=== PATIENT | male | born 1935 | race Caucasian/White ===

== ENCOUNTER 2017-05-22 10:26 | Emergency (ER) | payer MEDICARE ==
[2017-05-22 11:36] LABS: #Lymphocytes 0.7 thou/uL (1.20-3.40); #Monocytes 0.8 thou/uL (0.11-0.59); #Neutrophils 8.4 thou/uL (1.40-6.50); %Basophils 0.1 % (0.0-1.0); %Eosinophils 0.4 % (0.0-10.0); %Lymphocytes 7.1 % (21.0-51.0); %Monocytes 7.9 % (0.0-10.0); %Neutrophils 84.5 % (42.0-75.0); Hemoglobin 14.7 g/dL (14.0-18.0); Mean Corpuscular HGB CONC 32.8 g/dL (32.0-36.0); Mean Corpuscular Hemoglobin 33.1 pg (27.0-31.0); Mean Platelet Volume 8.7 fL (7.4-10.4); Platelet Count 200 thou/uL (130-400); RBC Distribution Width 13.1 % (11.5-14.5); Red Blood Cell (RBC) Count 4.43 mill/uL (4.70-6.10)
[2017-05-22 11:58] LABS: ALT (SGPT) 15 U/L (8-55); AST (SGOT) 17 U/L (5-34); Albumin 3.9 g/dL (3.4-4.8); Alkaline Phosphatase 60 U/L (40-150); Anion Gap 14 mmol/L (10-20); BUN (Urea Nitrogen) 17 mg/dL (8.4-25.7); Calc. Creatinine Clearance 0 mL/min (70-130); Calcium 9.9 mg/dL (7.8-10.44); Carbon Dioxide 23 mmol/L (23-31); Chloride 104 mmol/L (98-107); Estimated GFR-MDRD 74; Globulin 3.3 g/dL (2.4-3.5); Glucose 131 mg/dL (83-110); Potassium 4.7 mmol/L (3.5-5.1); Protein, Total 7.2 g/dL (5.8-8.1); Sodium 136 mmol/L (136-145)
[2017-05-22 12:03] LABS: CKMB 1.8 ng/mL (0-6.6); Troponin I 0.022 ng/mL (< 0.028)
[2017-05-22 13:01] LABS: Clarity Slightly Cloudy (Clear); Leukocyte Negative (Negative); Nitrite Negative (Negative); Specific Gravity, Urine 1.025 (1.002-1.036); pH, Urine 5.5 (5.0-9.0)
[2017-05-22 13:02] LABS: Bilirubin Small (Negative); Blood, Urine Negative (Negative); Glucose, Urine (Dipstick) Negative (Negative); Protein, Urine (Dipstick) 30 mg/dL (Neg-Trace)
--- NOTE | 2017-05-22 13:50 | RAD ---
PORTABLE CHEST: Date: 05/22/17 PROVIDED CLINICAL HISTORY: Altered mental status. FINDINGS: Comparison with 01/10/17. Cardiac and mediastinal silhouette is unchanged in appearance. Chronic obstructive changes are seen. There is questioned parenchymal opacity of the left lung base. The lungs appear otherwise clear. No p leural fluid or pneumothorax evident. IMPRESSION: Question left basilar opacity. Correlation with lateral view may be useful. Pneumonia cannot be exclu ded. POS: MARIELOS
[2017-05-22] MEDS ORDERED: Acetaminophen 500 MG TAB ONE (14:10)
[2017-05-22] MEDS ORDERED: Lisinopril 10 MG TAB ONE (14:26)
--- NOTE | 2017-05-22 14:35 | CT ---
HEAD CT WITHOUT CONTRAST: DATE: 05/22/17. COMPARISON: 01/10/17. HISTORY: Altered mental status with lethargy, weakness, and fatigue. TECHNIQUE: Serial axial CT imaging obtained at 5 mm intervals from vertex through the skull base without contras t. FINDINGS: The imaged paranasal sinuses and mastoid air cells are well aerated. There is no displaced calvarial fracture. There is no intracranial hemorrhage, midline shift, mass effect, or ventricular enlargement. There is periventricular, deep, and subcortical white matter hypodensity, evidence of small-vessel di sease. IMPRESSION: Evidence of small-vessel disease. No intracranial hemorrhage or displaced calvarial fracture. If th ere is concern for acute infarction, brain MRI advised. POS: LUCIANO
[2017-05-22] MEDS ORDERED: Piperacillin/Tazobactam 4.5 GM in Sodium Chloride 0.9% 100 ML IVPB SCH (15:00)
--- NOTE | 2017-05-22 19:28 | CON ---
DATE OF CONSULTATION: 05/22/2017 ER CONSULTATION NOTE PRIMARY CARE PHYSICIAN: Glenn Ruiz M.D. REFERRING PHYSICIAN: Gilson Lira M.D. CHIEF COMPLAINT: Fever and lethargy. HISTORY OF PRESENT ILLNESS: Mr. Robertson is an 81-year-old white male with history of hypertension, di abetes, hyperlipidemia, peripheral neuropathy, dementia, COPD, and cerebrovascular disease who was br ought to the emergency department for the third time in a week for fevers and lethargy. Prior today, he was taken to outside ER, the last being at [facility] a few days ago. At that oi, he was diagnosed with urinary tract infection and started on antibiotics, in which daughter who is his primary caregiver was unable to cherry picker operator for him until yesterday due to problems. She states that she has found him on the floor a few times and he cannot tell her why. No apparent i memo. She has a car that is not working well and it is a large time unable to get his medicines o n a regular basis. He was brought in by EMS again in the emergency department for evaluation. Workup here was negative except for positive flu screen, temperature was 102.9, but everything else was normal. We were franz d for evaluation. There has been no chest pain that he admits to. No nausea, vomiting or diarrhea. I did call his daughter, Sabine, at [phone], who is his medical decision maker and explained the c maria de jesusrenfish situation. PAST MEDICAL HISTORY: 1. Hypertension. 2. Diabetes mellitus type 2, insulin-dependent. 3. Hyperlipidemia. 4. Peripheral neuropathy. 5. Dementia. 6. Cerebral vascular disease. 7. COPD. PAST SURGICAL HISTORY: Not obtainable due to the patient's mental status. HOME MEDICATIONS: 1. Lisinopril 10 mg p.o. daily. 2. NovoLog sliding scale q.i.d. 3. Lantus 12 units subcu at bedtime. 4. Lipitor 10 mg p.o. at bedtime. ALLERGIES: No known drug allergies. FAMILY HISTORY: Negative for clotting or bleeding disorder, no immune dysfunction. SOCIAL HISTORY: Significant for social alcohol. No IV drug abuse. He does smoke about half pack of cigarettes per day. His daughter only gives him in mild and limited amounts. The patient lives in a travel trailer 20 feet from his daughter's house. REVIEW OF SYSTEMS: A 10-point review of systems was performed. The patient denied everything. PHYSICAL EXAMINATION: VITAL SIGNS: Temperature 102.9, pulse 90, blood pressure 152/117, respiratory rate 16, sat 98% on ro om air. GENERAL: He is awake. He is alert. He is oriented to person and the fact that he is in the hospita , but cannot me give any further information. He does not appear in acute distress. HEENT: Normocephalic and atraumatic. Pupils equal, round, react to light bilaterally, mucous membra torito moist. No visible lesions. No thrush. NECK: Supple with no lymphadenopathy, JVD or thyromegaly. He has normal carotid upstrokes. I do no t appreciate bruits. LUNGS: Clear. He has good air movement. Symmetric chest excursion. There is no prolonged expirato ry phase. No wheezes, no crackles. CARDIOVASCULAR: Normal S1 and S2, no S3 or S4. He has normal cardiac and regular. I do not appreci ate murmurs. ABDOMEN: Soft, it is nontender, nondistended. No masses or organomegaly. EXTREMITIES: No cyanosis, clubbing. Trace pedal edema. SKIN: Warm, moist, and well perfused. There is no other rash or lesions. NEUROLOGIC: Cranial nerves II-XII grossly intact. He has no apparent focal neurologic deficits. Sp eech appears normal. His recall is poor and he is only oriented to person and a type of location. LABORATORY DATA: CMP is normal. Sodium 136, potassium 4.7, chloride 104, bicarb 23, BUN 17, creatin ine 0.98, calcium 9.9, magnesium of 2.0, and glucose of 131. Liver function completely within normal limits. CBC showed white count of 10.0, 84% granulocytes, hemoglobin is 14.7, hematocrit 41.8 and platelet co unt of 200,000. CK was normal at 82, CK-MB of 1.8, troponin I 0.022. BNP normal 134.6 and urinalysi s here was negative for bacterial infection. Lactic acid 1.2. CT scan of the brain showed chronic s mall vessel disease. Chest x-ray showed possible left basilar opacity, but looks like scarring with obscuration that maybe 1 cm of the heart border. Both costophrenic angles are sharp. Microbiologic studies and influenza screen positive for flu A. ASSESSMENT AND PLAN:1. 1. Influenza A. Recommend oseltamivir 75 mg p.o. b.i.d. for 5 days. I do not believe he has clinic al pneumonia. I would not treat with levofloxacin. As far as hospital disposition, the patient does not meet any inpatient criteria or observation criteria. Recommend that he would be returned home t o follow up with his primary care physician. I did speak with the daughter, she had concerns that radha was unable to care for him. I did recommend the nursing staff and the emergency department to cont act case management for an APS referral, but nonetheless could not necessary keep him here. 2. Hypertension, 152/117, given 10 mg of lisinopril in the emergency department. 3. Diabetes mellitus type 2 on insulin, to continue. 4. Hyperlipidemia on Lipitor. 5. Peripheral neuropathy. 6. Dementia. Certainly currently in full swing.
== END 2017-05-22 17:02 | disposition home or self-care (01) ==
LOC: ERS 10:26
DX: J11.1 Influenza due to unidentified influenza virus with other respiratory manifestations (principal); F03.90 Unspecified dementia, unspecified severity, without behavioral disturbance, psychotic disturbance, mood disturbance, and anxiety; E11.40 Type 2 diabetes mellitus with diabetic neuropathy, unspecified; I10 Essential (primary) hypertension; J44.9 Chronic obstructive pulmonary disease, unspecified; F17.210 Nicotine dependence, cigarettes, uncomplicated; Z79.899 Other long term (current) drug therapy; Z86.73 Personal history of transient ischemic attack (TIA), and cerebral infarction without residual deficits; Z79.4 Long term (current) use of insulin
CPT/HCPCS: 36415; 70450; 71045; 80053; 81003; 81015; 82553; 83605; 83735; 83880; 84484; 85025; 87040; 87086; 93005; 96360; 96361; J2543; J7050

== ENCOUNTER 2018-10-17 15:04 | Observation (INO) | payer MEDICARE, MEDICAID ==
--- NOTE | 2018-10-17 15:28 | PDOC.FPRHP ---
- History of Present Illness Chief Complaint: syncopal episode History of Present Illness: 83 you M with chronic afib who presented as tx from [place] for syncopal episode. Limited history is provided by patient. Per daughter, patient was at [place] sitting outside when he became unresponsive. It was unsure how long he was unconsciousness for. EMS was called. At the [place] ED had SBP 90s and given 1L NS. Glucose was reportedly 48, was given D5. UA was consistent with UTI, patient was afebrile, no tachycardia. He denies dysuria, hematuria. He is A&O x1 , per daughter this is his baseline due to his dementia. EKG showed afib, consistent with PMH. - Allergies/Adverse Reactions Allergies Allergy/AdvReac Type Severity Reaction Status Date / Time No Known Allergies Allergy Unverified 11/07/12 00:35 - Home Medications Medication Instructions Recorded Confirmed Type Aspirin [Ecotrin Low Strength] 81 mg PO DAILY 11/07/12 11/07/12 History Calcitrate + Vit D Caplet 2 tablet PO DAILY 11/07/12 11/07/12 History Lisinopril 10 mg PO DAILY 11/07/12 11/07/12 History Insulin Detemir 100 UNITS/ML 14 units SC HS #0 vial 11/08/12 Rx [Levemir] - History PMHx:Dementia, IDDM2, HTN, Afib, Hx DVA, COPD, Onchomycosis PSHx: unable to attain FHx:n/c Social: Drinks socially every week, denies drug use, current smoker 1/2PPD - Review of Systems ROS unobtainable: due to mental status - Vital signs 134/78, Pulse: 69, Resp: 16, Temp: 98.1 (Oral), Pain: 0, O2 sat: 96 on Room Air , Time: 10/17/2018 15:08. - Physical Exam Constitutional: NAD -Constitutional: A&O x1 (to self) awake, non lethargic HEENT: normocephalic and atraumatic, PERRLA, EOMI -HEENT: red conjunctiva Neck: supple, FROM, no bruits Heart: RRR, normal S1/S2, pulses present, no edema -Lungs: bilateral lung crackles up to mid hinojosa Abdomen: soft, non-tender Musculoskeletal: normal structure, normal tone, ROM grossly normal -Neurological: 4/5 strength in BLE Skin: no rash/lesions Heme/Lymphatic: no unusual bruising or bleeding FMR H&P: Results - EKG Interpretation EKG: afib, no RVR - Radiology Interpretation CT scan - head Status: report reviewed by me Additional comment: chronic ischemic changes, no acute intracranial abnormalities Chest x-ray Status: image reviewed by me, report reviewed by me Additional comment: report read pulmonary edema FMR H&P: A/P - Problem List (1) Syncope Current Visit: Yes Status: Acute Code(s): R55 - SYNCOPE AND COLLAPSE (2) Chronic a-fib Current Visit: Yes Status: Acute Code(s): I48.2 - CHRONIC ATRIAL FIBRILLATION (3) Insulin dependent diabetes mellitus Current Visit: Yes Status: Acute Code(s): E11.9 - TYPE 2 DIABETES MELLITUS WITHOUT COMPLICATIONS; Z79.4 - FOUNDATION DIGGER (CURRENT) USE OF INSULIN (4) HTN (hypertension) Current Visit: Yes Status: Acute Code(s): I10 - ESSENTIAL (PRIMARY) HYPERTENSION (5) COPD (chronic obstructive pulmonary disease) Current Visit: Yes Status: Acute (6) Hyperlipidemia Current Visit: Yes Status: Acute Code(s): E78.5 - HYPERLIPIDEMIA, UNSPECIFIED (7) BPH (benign prostatic hyperplasia) Current Visit: Yes Status: Acute Code(s): N40.0 - BENIGN PROSTATIC HYPERPLASIA WITHOUT LOWER URINRY TRACT SYMP - Plan 83 yo M with hx of syncopal episodes admitted for syncopal episode work up #Syncopal episode -Glucose 48 en route, SBP 90s in [place]. s/p 1L bolus and D5 -ddx: metabolic synope vs. orthostatuic -CT head: chronic ischemic changes. Per patient PCP Dr. Hicks was worked up outpatient with no signficiant findings -Will workup syncope with carotid dopplers, orthostatic BPs, TTE, tele monitoring overnight #Metabolic acidosis -AG 12, LA 3.5 -s/p 1L bolus, will do 500cc bolus so as not to fluid overload -Repeat LA #Pulmonary edema -per CXR -patient with crackles on exam but non hypoxic on RA, CXR findings could be from interstitial -BNP 172, no hx of heart failure -no other signs of fluid overload -TTE #UTI -s/p rocephin -continue -pending blood & urine cultures -mild leukocytosis, not likely sepsis in light of stable vitals signs #Hx of dysphagia -admitted 1 yr ago for aspiration PNA -daughter unsure of modified diet -NPO until bedside swallow -speech consult #chronic Afib -continue eliquis #HTN -home meds #HLD -home meds # COPD -home meds #BPH -home meds #IDDM2 -home meds -accuchecks/ SS dvt ppx: serenityis PCP: Fabiola admit: tele/obs abx: rocephin fluids: SL FMR H&P: Upper [place] - Pertinent history Eric Robertson is an 83 year old male with a history of atrial fibrillation, diabetes mellitus, and dementia who presents to the ED as aTxfer from outside ER due to syncope. Reportedly, pt was outside on the porch at his NH when he was noted to staff to be poorly responsive and was taken inside to get out of the heat when EMS arrived. Accucheck was 48 per EMS, pt was given D10 prior to arrival. At outside ED, pt received 1L NS. UA showed evidence of infection, so pt received a dose of Rocephin prior to arrival. - Pertinent findings Vitals: as described above. Exam: General: alert and oriented x 1 Heart: irregularly irregular rhythm, regular rate; no murmurs, rubs, or gallops. Lungs: bilateral crackles extending from bases to mid lung hinojosa. In no respiratory distress Neuro: CN II-XII intact grossly; no focal deficits. Extremities: moves all extremities well; no peripheral edema. Labs/Imaging UA: + Ketones, moderate blood, + nitrite, Large leukocyte esterase, >50 WBC, 4+ bacteria BNP: 110. CXR: extensive pulmonary edema Trop: negative x 1 EKG: atrial fibrillation - Plan Date/Time: 10/17/18 1528 IShereen, have evaluated this patient and agree with findings/plan as outlined by [facility] internship resident. Pertinent changes/additions are listed here. Syncope - uncertain etiology. ddx: cardiogenic (structural vs.arrhythmogenic), neurogenic (CVA/Sz), metabolic (hypoglycemia,infection), orthostatic. - will admit to telemetry for further observation. - further workup to include blood/urine cultures, continuous telemetry monitoring, echocardiogram, carotid dopplers, ac/hs accuchecks. - CT negative for acute ischemic event. Unlikely Sz Urinary tract infection - will continue Rocephin. - urine culture pending Elevated lactic acid - possibly related to sepsis/infection although no anion-gap - likely related to volume depletion, will recheck now that pt has received IV fluids. Chronic atrial fibrillation - rate controlled. - on anticoagulation Insulin Diabetes mellitus - with hypoglycemic event, will hold insulin to determine pt's need. - hypoglycemia protocol in place - consistent carbohydrate diet - AC/HS accuchecks Dementia, likely vascular - no medications currently. - reorientation measures. The remainder of pt's chronic medical problems to be managed as listed above. Disposition: stable. Discussed pt with Dr. Domingo who states that pt has been relatively stable over the last year. Pt had syncopal episode in the past with negative neuroimaging. No formal workup needed at that time. Pt also had a hospitalization ~ 1 yr ago for aspiration pneumonia, but has been stable since. DVT prophylaxis: on eliquis for chronic anticoagulation, will continue.
--- NOTE | 2018-10-17 16:03 | CT ---
CT BRAIN NONCONTRAST: DATE: 10/17/2018 HISTORY: 83-year-old male with altered mental status. FINDINGS: There is no evidence of acute intra-axial or extra-axial hemorrhage. There is no midline shift or any other mass effect. There is no extra-axial fluid collection. There is no evidence of obstructive hydrocephalus. Calvarium is intact. There is diffuse brain parenchymal volume loss. There are low att enuation areas in the white matter. These are nonspecific, but in a patient of this age, they are probably chronic ischemic white matter changes due to microvascular atherosclerosis. Old lacunar infa rctions left basal ganglia, right thalamus, left jorge. No interval change since 01/29/2019 IMPRESSION: 1) No acute intracranial findings. 2) involutional changes and chronic ischemic white matter changes. 3) cluster of multiple tiny old lacunar infarctions in the left basal ganglia. 4) tiny old lacunar infarction in right thalamus and one in the left jorge.
[2018-10-17] MEDS ORDERED: cefTRIAXone\\ROCEPHIN 2 GM VIAL ONE (16:20)
[2018-10-17] MEDS ORDERED: Insulin Regular 300 UNITS/3 ML VIAL SC PRN ×2 (17:58)
[2018-10-17] MEDS ORDERED: Lactated Ringer's 500 ML IV SCH (17:58)
[2018-10-17] MEDS ORDERED: Dextrose 5% in Water 1,000 ML IV PRN (17:58)
[2018-10-17] MEDS ORDERED: Dextrose 50% Abboject 50 ML SYRINGE SLOW IVP PRN (17:58)
[2018-10-17] MEDS ORDERED: Ergocalciferol 1.25 MG(50,000 UNITS) CAP PO SCH (19:15)
[2018-10-17 19:25] LABS: Troponin I Less than 0.010 ng/mL (< 0.028)
[2018-10-17 20:00] LABS: Lactic Acid 2.8 mmol/L (0.5-2.2)
[2018-10-17] MEDS ORDERED: Apixaban 5 MG TAB PO SCH (21:00)
[2018-10-17] MEDS ORDERED: Atorvastatin Calcium 20 MG TAB PO SCH (21:00)
[2018-10-17] MEDS ORDERED: Tamsulosin HCl 0.4 MG CAP PO SCH (21:00)
[2018-10-17 22:28] LABS: Troponin I Less than 0.010 ng/mL (< 0.028)
[2018-10-17 22:51] VITALS: BMI 23.1
[2018-10-17 23:21] LABS: Strep pneumo Urine Ag NEGATIVE (NEGATIVE)
[2018-10-18] MEDS ORDERED: traMADol HCl 50 MG TAB PO PRN (01:54)
--- NOTE | 2018-10-18 06:36 | PDOC.FM ---
- Subjective Subjective: bradcardia, afib/aflutter last night. patient cannot give good sx history says "everything is good". A&O x1. - Objective Vital Signs & Weight: Vital Signs (12 hours) Temp Pulse Resp BP Pulse Ox 10/18/18 03:20 98.5 F 63 19 155/89 H 97 10/17/18 23:27 63 139/67 96 10/17/18 20:00 98.1 F 72 16 125/66 95 Weight Weight 74.984 kg I&O: 10/16/18 10/17/18 10/18/18 06:59 06:59 06:59 Intake Total 710 Output Total 150 Balance 560 Result Diagrams: 10/18/18 06:03 10/18/18 06:03 Phys Exam - Physical Examination Constitutional: NAD HEENT: moist MMs mucus in eyes, no erythema Respiratory: no wheezing, no rales Cardiovascular: no significant murmur afib Gastrointestinal: soft, non-tender Musculoskeletal: no edema Neurological: non-focal, moves all 4 limbs Psychiatric: normal affect Deviation from normal: a&o x1 Skin: cap refill <2 seconds Dx/Plan (1) Syncope Code(s): R55 - SYNCOPE AND COLLAPSE Status: Acute (2) Chronic a-fib Code(s): I48.2 - CHRONIC ATRIAL FIBRILLATION Status: Acute (3) Insulin dependent diabetes mellitus Code(s): E11.9 - TYPE 2 DIABETES MELLITUS WITHOUT COMPLICATIONS; Z79.4 - ELECTRICAL SUPERVISOR (CURRENT) USE OF INSULIN Status: Acute (4) HTN (hypertension) Code(s): I10 - ESSENTIAL (PRIMARY) HYPERTENSION Status: Acute (5) COPD (chronic obstructive pulmonary disease) Status: Acute (6) Hyperlipidemia Code(s): E78.5 - HYPERLIPIDEMIA, UNSPECIFIED Status: Acute (7) BPH (benign prostatic hyperplasia) Code(s): N40.0 - BENIGN PROSTATIC HYPERPLASIA WITHOUT LOWER URINRY TRACT SYMP Status: Acute - Plan Plan: #Syncopal episode ddx: cardiogenic vs. neurogenic vs. metabolic vs. orthostatic - likely metabolic in light of hypoglemic episode -UTI treated per Rocephin -pending TTE, trops negative x 3 -CT brain, no acute changes -No further hypoglycemic episodes -Pending carotid dopplers - only requiring 12 units insulin, will switch to metformin, renal function good #Urinary tract infection - will continue Rocephin, pending cultures #Elevated lactic acid - possibly related to sepsis/infection/volume depletion although no anion-gap - AM rpt pending #Chronic atrial fibrillation - rate controlled, continue eliquis #IDDM2 - high accuchecks 118-265 with 3 units SS to cover - need to call snf to find out insulin requirement #History of dysphagia -passed bedside swallow, puree diet pending speech recs #Dementia, likely vascular - no medications currently. - reorientation measures code: full pcp: gladys dispo: pending studies and workup, likely back to NH today
[2018-10-18 06:49] LABS: #Eosinphils 0.2 thou/uL (0.0-0.7); #Lymphocytes 2.9 thou/uL (1.20-3.40); #Neutrophils 8.6 thou/uL (1.40-6.50); %Basophils 0.1 % (0.0-1.0); %Eosinophils 1.9 % (0.0-10.0); %Lymphocytes 22.6 % (21.0-51.0); %Monocytes 7.7 % (0.0-10.0); %Neutrophils 67.6 % (42.0-75.0); Hemoglobin 12.9 g/dL (14.0-18.0); Mean Corpuscular HGB CONC 32.9 g/dL (32.0-36.0); Mean Corpuscular Hemoglobin 30.6 pg (27.0-31.0); Mean Corpuscular Volume 92.9 fL (78.0-98.0); Platelet Count 243 thou/uL (130-400); RBC Distribution Width 14.4 % (11.5-14.5); Red Blood Cell (RBC) Count 4.21 mill/uL (4.70-6.10); White Blood Cell (WBC) Count 12.7 thou/uL (4.8-10.8)
[2018-10-18 07:13] LABS: Anion Gap 12 mmol/L (10-20); BUN (Urea Nitrogen) 12 mg/dL (8.4-25.7); Calc. Creatinine Clearance 66 mL/min (70-130); Calcium 9.3 mg/dL (7.8-10.44); Carbon Dioxide 24 mmol/L (23-31); Chloride 106 mmol/L (98-107); Estimated GFR-MDRD 79; Glucose 207 mg/dL (83-110); Potassium 4.1 mmol/L (3.5-5.1); Sodium 138 mmol/L (136-145)
[2018-10-18 07:22] LABS: Lactic Acid 2.1 mmol/L (0.5-2.2)
[2018-10-18] MEDS ORDERED: metFORMIN XR 500 MG TAB PO ONE (08:00)
[2018-10-18] MEDS ORDERED: Amlodipine 5 MG TAB PO SCH (09:00)
[2018-10-18] MEDS ORDERED: Apixaban 5 MG TAB PO SCH (09:00)
[2018-10-18] MEDS ORDERED: Docusate 100 MG CAP PO SCH (09:00)
[2018-10-18] MEDS ORDERED: Polyethylene Glycol 3350 17 GM Packet PO SCH (09:00)
[2018-10-18] MEDS ORDERED: Finasteride 5 MG TAB PO SCH (09:00)
[2018-10-18] MEDS ORDERED: Multivitamin W/ Minerals 1 TAB PO SCH (09:00)
[2018-10-18] MEDS ORDERED: Aspirin 81 mg Enteric Coated Tablet PO SCH (09:00)
[2018-10-18] MEDS ORDERED: Lisinopril 5 MG TAB PO SCH (09:00)
[2018-10-18] MEDS ORDERED: Sulfameth/Trimethoprim DS 800-160mg TAB PO ONE (10:04)
[2018-10-18 11:17] LABS: Hemoglobin A1c 8.1 % (4.0-6.0)
[2018-10-18] MEDS ORDERED: cefTRIAXone\\ROCEPHIN 1 GM in Sodium Chloride 0.9% 100 ML IVPB SCH (12:00)
[2018-10-18 13:07] VITALS: BP 140/65; TEMP 98
--- NOTE | 2018-10-18 14:21 | ULT ---
US Carotid Doppler STANDARD History: Syncope Comparison: None. Findings: Real-time grayscale, color and spectral analysis of the extracranial carotid and vertebral arteries was performed. No elevated peak systolic velocities within the internal carotid arteries. Antegrade flow both verteb ral arteries. Impression: No hemodynamically significant stenosis.
[2018-10-18] MEDS ORDERED: Sulfameth/Trimethoprim DS 800-160mg TAB PO SCH (21:00)
[2018-10-18] MEDS ORDERED: metFORMIN XR 500 MG TAB PO SCH (21:00)
--- NOTE | 2018-10-19 13:56 | HP ---
ADDENDUM: Please see the note from Dr. Rodriguez for which I agree patient was seen, evaluated, and discussed with the residents and examined with him. HISTORY OF PRESENT ILLNESS: This is an 83-year-old senior care patient who was coming in for a syncopal spell. Initially was found dehydrated, systolic blood pressure in the 90s and also glucose is 48 and was given D5. Sugar has been doing fine since. It sounds like he perked up quickly since the sugar came up and the fluids were given. Denies fever. He was found to have UTI. He is in atrial fibrillation, but that is chronic. He is not a good historian secondary to dementia. Allergies, home medications, past medical history, past surgical history, family history, social history and review of systems, all per Dr. Rodriguez's history and physical for which I have reviewed and agree. PHYSICAL EXAMINATION: VITAL SIGNS: Afebrile. Vital signs are stable. GENERAL: Alert to name, but that is really about it. Pleasant, but somewhat confused. ENT: Does have a little bit of conjunctival irritation on the right side. NECK: No bruits. CHEST: Clear. HEART: Slow atrial fibrillation, irregularly irregular, pulse rate right around 50-60. ABDOMEN: Benign. EXTREMITIES: No edema. DIAGNOSTIC STUDIES: CT really showed no ischemia. Blood workup significant for lactic acidosis. Procalcitonin was fine on 2 of the UA in front of me, but I hear that had evidence of UTI with red blood cells and white blood cells. ASSESSMENT AND PLAN: 1. Syncopal spell, likely from the hypoglycemia. 2. Diabetes. 3. Urinary tract infection. 4. Possible right eye conjunctivitis. 5. Dementia. 6. Atrial fibrillation, well controlled. PLAN: IV antibiotics for the urinary tract infection. We will wait on culture. Monitor blood sugar closely, just put him on sliding scale and hold off on his daily insulin. He may not be need it as he is on a very tiny dose. Otherwise, reviewed all the rest of his medicines. We will resume any other home medicines from his senior care and as long as he stays okay mentally. He will probably be able to go back to the senior care tomorrow if not Friday depending on when they are willing to take him, though it sounds like this is likely all low sugar related. Start about check things in. Job ID: [id number]
--- NOTE | 2018-10-19 14:16 | PRG ---
DATE OF SERVICE: 10/18/2018 ADDENDUM: Please see note from Dr. Rodriguez, for which I agree. The patient is seen, evaluated, discussed, and examined with the residents by bedside. No real change on this 83-year-old gentleman who was admitted for a syncopal spell. It sounds like it is more likely hypoglycemia. From a diabetes standpoint, he is just on insulin and obviously, this may not be a griffiths choice for him if he is having syncopal spells and severe hypoglycemia like he did. He is in chronic atrial fibrillation and there are really no changes or concern that this is some kind of an arrhythmia-type episode. He has chronic dementia, but not really changed. He does have UTI and we are treating him appropriately with that. Still getting an echo and a carotid but as long as those come back fairly normal, we are going to assume it is hypoglycemia and she will be able to leave. Exam today is completely fine. No major changes other than the slow atrial fibrillation. There was some question on chest x-ray from outside ER if he had pulmonary congestion, but he has absolutely no signs or symptoms of that at all. We will see what the echo shows. Job ID: [id number]
--- NOTE | 2018-10-20 21:58 | EKG ---
Test Reason : Blood Pressure : / mmHG Vent. Rate : 049 BPM Atrial Rate : 300 BPM P-R Int : 000 ms QRS Dur : 080 ms QT Int : 444 ms P-R-T Axes : 000 -20 000 degrees QTc Int : 401 ms Atrial fibrillation with slow ventricular response Inferior infarct , age undetermined Abnormal ECG When compared with ECG of 17-OCT-2018 15:22, (Unconfirmed) No significant change was found Confirmed by LESLIE PIMENTEL, . SJamaal (4) on 10/20/2018 9:58:16 PM Referred By: ARISTEO ELISE Confirmed By:DR. Gómez NELSON MD
== END 2018-10-18 14:42 ==
LOC: ERS 15:04 → INTOOBSV 15:56 → 2NO 15:56
PROVIDERS: ADMIT Family Medicine; ATTEND Family Medicine
DX: R55 Syncope and collapse (principal); N39.0 Urinary tract infection, site not specified; J44.9 Chronic obstructive pulmonary disease, unspecified; I10 Essential (primary) hypertension; F17.210 Nicotine dependence, cigarettes, uncomplicated; I48.2 Chronic atrial fibrillation; N40.0 Benign prostatic hyperplasia without lower urinary tract symptoms; E11.10 Type 2 diabetes mellitus with ketoacidosis without coma; F03.90 Unspecified dementia, unspecified severity, without behavioral disturbance, psychotic disturbance, mood disturbance, and anxiety; E86.0 Dehydration; E11.649 Type 2 diabetes mellitus with hypoglycemia without coma; Z79.4 Long term (current) use of insulin; Z79.82 Long term (current) use of aspirin; Z79.899 Other long term (current) drug therapy
CPT/HCPCS: 70450; 80048; 82962 ×2; 83036; 83605 ×2; 83735; 84145; 84443; 84484; 85025; 87040; 87086; 87899; 93005 ×2; 93306; 93880; 96365; 99285; 99406; G0378 ×2; 36415; 36416; 93010; J0696; J1815; J7120

== ENCOUNTER 2019-03-19 16:32 | Emergency (ER) | payer MEDICARE, OTHER ==
--- NOTE | 2019-03-19 18:05 | RAD ---
PORTABLE CHEST: 03/19/19 PROVIDED CLINICAL HISTORY: Cough. FINDINGS: Comparison 10/17/18. Cardiac and mediastinal silhouette is unchanged in appearance. The lungs are hypoinflated. Conspicuou s interstitial opacities are redemonstrated. Bibasilar air space disease cannot be excluded. No large effusion or evidence for pneumothorax. IMPRESSION: Hypoinflated exam with right basilar air space disease not excluded. Follow-up is recommended. POS: TRACY
[2019-03-19 19:04] LABS: Bacteria/HPF None Seen HPF (None Seen); Bilirubin Negative (Negative); Blood, Urine Negative (Negative); Clarity Clear (Clear); Glucose, Urine (Dipstick) 200 mg/dL (Negative); Leukocyte Negative Leu/uL (Negative); Nitrite Negative (Negative); Protein, Urine (Dipstick) 30 mg/dL (Neg-Trace); RBC/HPF 0-3 HPF (0-3); Squamous Epithelial 0-3 HPF (0-3); Urobilinogen Normal mg/dL (Less than 2); WBC/HPF 0-3 HPF (0-3)
== END 2019-03-19 20:43 | disposition home or self-care (01) ==
LOC: ERS 16:32
DX: J18.9 Pneumonia, unspecified organism (principal); H10.9 Unspecified conjunctivitis; F03.90 Unspecified dementia, unspecified severity, without behavioral disturbance, psychotic disturbance, mood disturbance, and anxiety; E11.40 Type 2 diabetes mellitus with diabetic neuropathy, unspecified; I10 Essential (primary) hypertension; F17.210 Nicotine dependence, cigarettes, uncomplicated; Z79.4 Long term (current) use of insulin; Z79.899 Other long term (current) drug therapy
CPT/HCPCS: 71045; 81003; 81015

== ENCOUNTER 2019-04-21 09:46 | Observation (INO) | payer MEDICARE, MEDICAID ==
[2019-04-20 11:16] VITALS: BMI 25.7
[2019-04-21] MEDS ORDERED: PROPOFOL 200 MG/20 ML VIAL ONE (10:33)
[2019-04-21] MEDS ORDERED: Lidocaine 1% PF 5 ML VIAL ONE (10:33)
[2019-04-21] MEDS ORDERED: Promethazine HCl 25 MG/ML VIAL IM PRN (13:29)
[2019-04-21] MEDS ORDERED: Promethazine HCl 25 MG/ML VIAL SLOW IVP PRN (13:29)
[2019-04-21] MEDS ORDERED: Ondansetron HCl/PF 4 MG/2 ML Vial IVP PRN (13:29)
--- NOTE | 2019-04-21 14:17 | OP ---
DATE OF PROCEDURE: 04/21/2019 PROCEDURES PERFORMED: Esophagogastroduodenoscopy with percutaneous endoscopic gastrostomy tube placement. INDICATION FOR PROCEDURE: Dysphagia (without aspiration on modified barium swallow study) and moderate protein calorie malnutrition. DESCRIPTION OF PROCEDURE: After the risks and benefits of the procedure were explained to the patient's surrogate (patient's daughter) including risks of bleeding, infection, perforation, reactions to anesthesia, aspiration and/or pain, informed consent was obtained. The patient was then taken to the endoscopy suite, where he was placed in the supine position with administration of propofol for deep sedation via anesthesia support. Once adequate sedation was achieved, the standard gastroscope was introduced into the mouth with the intubation of the esophagus, stomach, and the proximal small intestines with the findings listed below. Upon completion of the initial examination, the gastroscope was then withdrawn into the stomach and using transillumination and one-to-one compression, a suitable site for placement of the gastrostomy tube was evaluated. Once one-to-one compression and transillumination were successful, the patient was prepped and draped in sterile fashion using an insufflation needle and 1% lidocaine. A small wheal of lidocaine was placed underneath the skin for local anesthesia. The needle was then advanced into the stomach perpendicular to the skin with back pressure as it was advanced with installation of approximately 4 to 4.5 mL of 1% lidocaine as the needle was withdrawn to anesthetize the tract. After 1 to 2 minutes of achieving local anesthesia, a scalpel was then used to make a vertical incision measuring approximately 1 cm in length with very minimal bleeding associated with this maneuver. Then, using an aspiration needle, it was then advanced into the stomach without difficulty. Once in adequate position, the needle was withdrawn with the catheter remaining in the stomach and a guidewire was fed through the catheter into the stomach. The guidewire was then retrieved via a snare that was advanced through the biopsy port of the gastroscope and withdrawn through the mouth, maintaining good control of the guidewire at all times. The percutaneous gastrostomy tube was affixed to the end of the guidewire and using a push technique, it was advanced into the stomach and out through the anterior abdominal wall. Second look endoscopy was then performed, confirming good position of the percutaneous gastrostomy tube within the body of the stomach. At that point, the procedure was terminated with all equipment removed from the patient. Ultimately, he was transferred to PACU in satisfactory condition with the plans to admit the patient to hospital for observation status. FINDINGS: Esophagus: Normal-appearing mucosa was seen in the proximal and mid esophagus; however, 2 to 3 small linear erosions were seen in the distal esophagus extending proximally from the gastroesophageal junction. There was no overt ulceration associated with these erosions and they measured longer than 5 mm in length, but did not extend between folds nor did they encompass greater than 75% of the esophageal lumen. No biopsies were taken given the high likelihood of gastroesophageal reflux, mediating these erosive lesions. Otherwise, there was no evidence of ulcerations, mass, lesions, or active/recent bleeding. The diaphragmatic pinch was well seen at 40 cm while the gastroesophageal junction was seen at 36 cm denoting a 4 cm hiatal hernia. Stomach: Normal-appearing mucosa was seen in the gastric cardia, fundus, body, greater curvature, antrum, and incisura. There was no evidence of erosions, ulcerations, mass, lesions, or active/recent bleeding. A hiatal hernia was seen on gastric retroflexion. Duodenum: Normal-appearing mucosa was seen in both the duodenal bulb and second portion of the duodenum. There was no evidence of erosions, ulcerations, mass, lesions, or active/recent bleeding. IMPRESSION: 1. A 4 cm hiatal hernia with resultant LA grade B reflux mediated erosive esophagitis. 2. Otherwise normal upper endoscopy. 3. Successful placement of a [employer] 20-[place] percutaneous gastrostomy tube. RECOMMENDATIONS: 1. Would continue the patient on n.p.o. status and would withhold any tube feeds for approximately the next 6 hours. If the patient has not exhibited any complications from the procedures, then would advance his tube feeds as recommended by Dietary Services. 2. We will consult Dietary Services for tube feed recommendations. 3. Would hold any anticoagulation on this patient for 48/72 hours given the increased risk of bleeding from the wound site for pain control per primary team. 4. Would maintain an abdominal binder on this patient given his demented status and higher likelihood of removing the tube on his own. 5. Would maintain standard PEG tube care and precautions including refraining from placing dressings underneath the external bumper and the skin. We will continue to follow please call with any questions. Job ID: [id number]
[2019-04-21] MEDS ORDERED: HumaLOG 300 UNITS/3 ML VIAL SC PRN (14:55)
[2019-04-21] MEDS ORDERED: Dextrose 5% in Water 1,000 ML IV PRN (14:55)
[2019-04-21] MEDS ORDERED: Dextrose 50% Abboject 50 ML SYRINGE SLOW IVP PRN (14:55)
[2019-04-21] MEDS ORDERED: traMADol HCl 50 MG TAB PO PRN (15:01)
[2019-04-21] MEDS ORDERED: Guaifenesin DM 100-10/5 ML UDCUP PO PRN (15:01)
--- NOTE | 2019-04-21 15:08 | PDOC.FPRHP ---
- History of Present Illness Chief Complaint: post op PEG tube History of Present Illness: This is an 83yo M who presented for outpatient PEG tube placement. GI, Dr. Sagastume asked if we could admit patient due to his dementia and risk of pulling PEG tube. Patient is coming from [facility]. Patient is axox1 - at baseline. Patient was getting PEG tube placed due to recent decreased PO intake. He passed his barium swallow study. Patient had been on a puree diet but eating about 20% of his meals. The daughter requested PEG tube placement. Patients PCP Dr. Hicks was contacted. Stated that patient had a hx of PNA which had already resolved. Patient is axox1-2 at baseline. Patient was seen in the PACU after PEG tube placement. He denies any pain currently. Denies any recent cough, congestion, fever/chills, NVD, abdominal or chest pain. - Allergies/Adverse Reactions Allergies Allergy/AdvReac Type Severity Reaction Status Date / Time No Known Allergies Allergy Verified 04/20/19 14:31 - Home Medications Medication Instructions Recorded Confirmed Type Acetaminophen 650 mg PO Q4H PRN 10/17/18 04/20/19 History Apixaban [Eliquis] 5 mg PO BID 10/17/18 04/20/19 History Aspirin [Aspir-Low] 81 mg PO DAILY 10/17/18 04/20/19 History Atorvastatin Calcium [Lipitor] 20 mg PO HS 10/17/18 04/20/19 History Docusate Sodium 100 mg PO BID 10/17/18 04/20/19 History Ergocalciferol (Vitamin D2) 50,000 unit PO Q7D 10/17/18 04/20/19 History [Vitamin D2] Finasteride [Proscar] 5 mg PO DAILY 10/17/18 04/20/19 History Lisinopril 5 mg PO DAILY 10/17/18 04/20/19 History Multivitamin [One-Daily 1 each PO DAILY 10/17/18 04/20/19 History Multi-Vitamin] Tamsulosin HCl [Flomax] 0.4 mg PO HS 10/17/18 04/20/19 History amLODIPine Besylate [Norvasc] 7.5 mg PO DAILY 10/17/18 04/20/19 History traMADol HCl [Tramadol HCl] 50 mg PO Q8H PRN 10/17/18 04/20/19 History metFORMIN XR [Glucophage XR] 500 mg PO BID tab 10/18/18 04/20/19 Rx Glucagon,Human Recombinant 1 mg SC ONE PRN 04/20/19 04/20/19 History [Glucagon Emergency Kit] Guaifenesin DM 100-10 [Robitussin 10 ml PO Q6HR PRN 04/20/19 04/20/19 History DM] Insulin Detemir [Levemir] 10 unit SQ HS 04/20/19 04/20/19 History Insulin NPH Human Isophane 10 units SQ DAILY 04/20/19 04/20/19 History [NovoLIN N] Polyethylene Glycol 3350 [Miralax] 17 gm PO DAILY PRN 04/20/19 04/20/19 History - History PMHx: Dementia, IDDM2, HTN, Afib, Hx DVA, COPD, Onchomycosis PSHx: unable to attain FHx: n/c Social: Drinks socially every week, denies drug use, current smoker 1/2PPD - Review of Systems General: denies: fever/chills, weight/appetite/sleep changes, night sweats, fatigue Eyes: denies: vision changes ENT: denies: nasal congestion Respiratory: denies: cough, congestion, shortness of breath Cardiovascular: denies: chest pain, palpitation, edema Gastrointestinal: denies: nausea, vomiting, diarrhea, constipation, abdominal pain Genitourinary: denies: dysuria Skin: denies: rashes, lesions Musculoskeletal: denies: stiffness, swelling Neurological: denies: weakness - Vital signs BP: 108/69 HR: 96 RR: 16 Tmax: 36.3C Pox: 96% on RA Wt: 66kg - Physical Exam Constitutional: NAD, awake, alert and oriented, well developed HEENT: normocephalic and atraumatic, PERRLA, EOMI, no scleral icterus, grossly normal vision, grossly normal hearing, MMM Neck: supple, FROM Heart: RRR, normal S1/S2, no murmurs/rubs/gallops Lungs: CTAB, no respiratory distress, good air movement, no wheezing Abdomen: soft, non-tender -Abdomen: abdominal binder in place Musculoskeletal: normal structure, normal tone, ROM grossly normal Neurological: no focal deficit Skin: no rash/lesions, good turgor, capillary refill <2 seconds Psychiatric: normal mood and affect -Psychiatric: axox2 R H&P: A/P - Problem List (1) BPH (benign prostatic hyperplasia) Current Visit: No Status: Acute Code(s): N40.0 - BENIGN PROSTATIC HYPERPLASIA WITHOUT LOWER URINRY TRACT SYMP (2) COPD (chronic obstructive pulmonary disease) Current Visit: No Status: Acute (3) Chronic a-fib Current Visit: No Status: Acute Code(s): I48.2 - CHRONIC ATRIAL FIBRILLATION * DO NOT USE * (4) HTN (hypertension) Current Visit: No Status: Acute Code(s): I10 - ESSENTIAL (PRIMARY) HYPERTENSION (5) Hyperlipidemia Current Visit: No Status: Acute Code(s): E78.5 - HYPERLIPIDEMIA, UNSPECIFIED (6) Insulin dependent diabetes mellitus Current Visit: No Status: Acute Code(s): E11.9 - TYPE 2 DIABETES MELLITUS WITHOUT COMPLICATIONS; Z79.4 - WEED BURNER (CURRENT) USE OF INSULIN - Plan #Protein calorie malnutrition POD 0 PEG tube placement. Patient tolerated procedure well. - GI (Tanika) consulted, appreciate recs. - Tool Dispatcher consulted for recs with PEG tube feeds. - Routine PEG tube care. Abdominal binder in place. Flushes before/after feeds. #HTN - continue home meds #IDDM - Continue home meds. Mild SS. #COPD - Continue home meds. Duoneb PRN. #Chronic afib - Held eliquis. Can restart in 72hours. #BPH - Continue home meds #Dementia AXOX1 to person. Baseline per PCP. - Will continue to monitor. Can consider a sitter if needed. Social - CM consulted for discharge planning. Code: Full Ppx: pepcid, SCDs PCP: Fabiola Dispo: LOS <48hrs. Case discussed with Dr. Echols R H&P: Upper Level - Plan Date/Time: 04/21/19 1034 I, [], have evaluated this patient and agree with findings/plan as outlined by employee communications intern resident. Pertinent changes/additions are listed here. Addendum - Attending - Attending Attestation Date/Time: 04/21/19 1721 I personally evaluated the patient and discussed the management with Dr. Smith I agree with the History, Examination, Assessment and Plan documented above with any addition or exceptions noted below. 83 yo [facility] patient with advanced dementia (A&O to person at baseline). Presented for elective PEG tube placement and admitted for post op observation. Exam unremarkable. Hold eliquis for 72 hrs. further recs per GI.
[2019-04-21] MEDS ORDERED: Ergocalciferol 1.25 MG(50,000 UNITS) CAP PO SCH (15:15)
[2019-04-21] MEDS ORDERED: Acetaminophen 325 MG TAB PO PRN (16:00)
[2019-04-21] MEDS: Lactated Ringer's 1,000 ML IV SCH ×2 (18:16→22:55)
[2019-04-21] MEDS: metFORMIN 500 MG TAB PO SCH (18:18)
[2019-04-21 19:04] LABS: #Eosinphils 0.1 thou/uL (0.0-0.7); #Lymphocytes 2.2 thou/uL (1.20-3.40); #Neutrophils 13.8 thou/uL (1.40-6.50); %Basophils 0.2 % (0.0-1.0); %Eosinophils 0.6 % (0.0-10.0); %Monocytes 5.9 % (0.0-10.0); %Neutrophils 80.4 % (42.0-75.0); Hemoglobin 14.8 g/dL (14.0-18.0); Mean Corpuscular HGB CONC 31.5 g/dL (32.0-36.0); Mean Corpuscular Hemoglobin 30.2 pg (27.0-31.0); Mean Corpuscular Volume 95.9 fL (78.0-98.0); Mean Platelet Volume 9.2 fL (7.4-10.4); Platelet Count 261 thou/uL (130-400); RBC Distribution Width 14.3 % (11.5-14.5); Red Blood Cell (RBC) Count 4.91 mill/uL (4.70-6.10); White Blood Cell (WBC) Count 17.1 thou/uL (4.8-10.8)
[2019-04-21 19:12] LABS: Hemoglobin A1c 7.5 % (4.0-6.0)
[2019-04-21 19:27] LABS: ALT (SGPT) 9 U/L (8-55); AST (SGOT) 13 U/L (5-34); Albumin 3.6 g/dL (3.4-4.8); Alkaline Phosphatase 81 U/L (40-110); Anion Gap 17 mmol/L (10-20); BUN (Urea Nitrogen) 13 mg/dL (8.4-25.7); Bilirubin, Total 1.2 mg/dL (0.2-1.2); Calc. Creatinine Clearance 63 mL/min (70-130); Calcium 9.7 mg/dL (7.8-10.44); Carbon Dioxide 24 mmol/L (23-31); Chloride 102 mmol/L (98-107); Estimated GFR-MDRD 87; Globulin 3.5 g/dL (2.4-3.5); Glucose 144 mg/dL (83-110); Potassium 4.4 mmol/L (3.5-5.1); Protein, Total 7.1 g/dL (5.8-8.1); Sodium 139 mmol/L (136-145)
[2019-04-21] MEDS ORDERED: Insulin Glargine 10 UNITS in Pre-Filled Syringe 1 EACH SC SCH (21:00)
[2019-04-21] MEDS ORDERED: Non-Formulary Item 1 EACH (Insulin Detemir [Levemir] 10 UNIT) SQ SCH (21:00)
[2019-04-21] MEDS ORDERED: Atorvastatin Calcium 20 MG TAB PO SCH (21:00)
[2019-04-21] MEDS ORDERED: Tamsulosin HCl 0.4 MG CAP PO SCH (21:00)
[2019-04-21] MEDS: Famotidine 20 MG TAB PO SCH (21:49)
--- NOTE | 2019-04-22 06:28 | PDOC.FM ---
- Subjective Subjective: NAEO. Patient resting comfortably in bed. No complaints or concerns. No concerns per nursing. He is ready to go back to the NH. Denies any abdominal pain. - Objective MAR Reviewed: Yes Vital Signs & Weight: Vital Signs (12 hours) Temp Pulse Resp BP Pulse Ox 04/22/19 04:00 97.7 F 72 16 152/83 H 100 04/22/19 00:02 98.0 F 72 16 144/83 H 100 04/21/19 20:24 98.1 F 74 16 130/85 100 Weight Weight 65.771 kg I&O: 04/20/19 04/21/19 04/22/19 06:59 06:59 06:59 Intake Total 1200 Balance 1200 Result Diagrams: 04/21/19 18:50 04/21/19 18:50 Phys Exam - Physical Examination Constitutional: NAD HEENT: PERRLA, moist MMs, sclera anicteric Neck: supple, full ROM Respiratory: clear to auscultation bilateral Cardiovascular: RRR, no significant murmur Gastrointestinal: soft, non-tender, no distention, positive bowel sounds PEG tube site cl/dr/in Neurological: non-focal, normal sensation, moves all 4 limbs Psychiatric: normal affect Skin: no rash, normal turgor, cap refill <2 seconds Dx/Plan (1) BPH (benign prostatic hyperplasia) Code(s): N40.0 - BENIGN PROSTATIC HYPERPLASIA WITHOUT LOWER URINRY TRACT SYMP Status: Acute (2) COPD (chronic obstructive pulmonary disease) Status: Acute (3) Chronic a-fib Code(s): I48.2 - CHRONIC ATRIAL FIBRILLATION * DO NOT USE * Status: Acute (4) HTN (hypertension) Code(s): I10 - ESSENTIAL (PRIMARY) HYPERTENSION Status: Acute (5) Hyperlipidemia Code(s): E78.5 - HYPERLIPIDEMIA, UNSPECIFIED Status: Acute (6) Insulin dependent diabetes mellitus Code(s): E11.9 - TYPE 2 DIABETES MELLITUS WITHOUT COMPLICATIONS; Z79.4 - LONG-TERM (CURRENT) USE OF INSULIN Status: Acute - Plan Plan: #Malnutrition POD 1 PEG tube placement. - GI (Tanika) consulted, appreciate recs. - Planer Stone consulted for recs with PEG tube feeds. Awaiting recs. - Routine PEG tube care. Abdominal binder in place. Flushes before/after feeds. #HTN - continue home meds. Bps at goal. #IDDM - Continue home meds. Mild SS. Sugars controlled. A1c 7.5. #COPD - Continue home meds. Duoneb PRN. #Chronic afib - Held eliquis. Can restart in 72hours (04/24). #BPH - Continue home meds #Dementia AXOX1 to person. Baseline per PCP. - Will continue to monitor. Social - CM consulted for discharge planning. Code: Full Ppx: Jarret valencia PCP: Fabiola Dispo: LOS < 48hrs. Possible DC later today. Case discussed with Dr. Loredo. Addendum - Attending - Attending Attestation Date/Time: 04/22/19 1004 I personally evaluated the patient and discussed the management with Dr. Smith. I agree with the History, Examination, Assessment and Plan documented above with any addition or exceptions noted below. Patient doing well this morning. No issues with PEG overnight. Initiate feedings today and likely d/c back to longterm.
[2019-04-22] MEDS: Famotidine 20 MG TAB PO SCH (08:22)
[2019-04-22] MEDS: metFORMIN 500 MG TAB PO SCH (08:23)
[2019-04-22] MEDS: Lactated Ringer's 1,000 ML IV SCH (08:26)
[2019-04-22] MEDS ORDERED: Amlodipine 5 MG TAB PO SCH (09:00)
[2019-04-22] MEDS ORDERED: Lisinopril 5 MG TAB PO SCH (09:00)
[2019-04-22] MEDS ORDERED: Finasteride 5 MG TAB PO SCH (09:00)
--- NOTE | 2019-04-22 11:51 | PRG ---
DATE OF SERVICE: 04/22/2019 REASON FOR CONSULTATION: Mild dysphagia, moderate protein-calorie malnutrition, status post PEG tube placement. SUBJECTIVE: Per nursing staff, there were no acute events or problems overnight. Tube feeds have been started and per Dietary recommendations, the patient has been tolerating it well. Upon interview today, the patient denies any pain from the PEG tube site itself; however, did exhibit some pain with manipulation of the tube. Otherwise, per nursing staff and per patient, there have been no episodes of nausea, vomiting, fevers, chills, hematemesis, melena, hematochezia, abdominal pain, diarrhea, or constipation. He is currently on a tube feed diet only, although per [facility] records, the patient can tolerate a pureed diet. OBJECTIVE: VITAL SIGNS: Temperature 97.5, pulse 72, blood pressure 155/86, respiratory rate 16, and saturating 100% on room air. GENERAL: The patient was lying in bed, in no acute distress. Alert and oriented x1. CARDIOVASCULAR: Regular rate and rhythm. RESPIRATORY: Clear to auscultation bilaterally. ABDOMEN: Normoactive bowel sounds. Soft, nondistended. Mild tenderness to palpation around the PEG tube site itself. The PEG tube site was noted in the left upper quadrant with no active bleeding, purulence, or increased skin erythema at the ostomy site itself. EXTREMITIES: No cyanosis, clubbing, or edema. LABORATORY DATA: No current studies are available for review. IMAGING DATA: The patient underwent EGD with PEG tube placement on April 21, 2019, which showed normal upper endoscopy of the esophagus, stomach, and the proximal small intestines. A [employer] 20-[place] percutaneous gastrostomy tube was successfully placed within the body of the stomach. ASSESSMENT AND PLAN: 1. Dysphagia. The patient is presenting with dysphagia with a pureed diet at the [facility], but no evidence of aspiration per the modified barium swallow study. I would recommend changing the patient's oral diet to a pureed diet in addition to tube feeds. 2. Moderate protein-calorie malnutrition. The patient is currently tolerating tube feeds through the PEG tube adequately with no problems would advance per Dietary recommendations. 3. Dementia. We would maintain the patient in an abdominal binder to protect the PEG tube at all times. If the PEG tube was inadvertently removed over the next 4 to 6 weeks, it would be considered a surgical emergency and would require an emergent CT scan and/or General Surgery consultation. From a GI standpoint, the patient is doing well and can be discharged to the [facility] with standard PEG tube care. I would continue to hold his anticoagulation for the next 48 hours and then restart with careful monitoring for possible bleeding. We will sign off at this time. Please call with any additional questions. Job ID: [id number]
[2019-04-22 12:06] VITALS: TEMP 97.7
[2019-04-22 14:43] VITALS: BP 124/79
[2019-04-22] MEDS ORDERED: FLU VACC TS2019-20(65YR UP)/PF 180 MCG/0.5 ML SYRINGE IM ONE (21:00)
--- NOTE | 2019-04-23 00:57 | DIS ---
DATE OF ADMISSION: 04/21/2019 DATE OF DISCHARGE: 04/22/2019 RESIDENT: Danielle Smith MD ADMITTING ATTENDING: Kush Echols MD DISCHARGE ATTENDING: Dilip Loredo MD. CONSULTS: Gastroenterology, Dr. Sagastume. PROCEDURES: PEG tube placement on 04/21/2019. DISCHARGE MEDICATIONS: 1. Flomax 0.4 mg oral at bedtime. 2. Lipitor 20 mg oral at bedtime. 3. Docusate sodium 100 mg oral twice daily. 4. Multivitamin one each oral daily. 5. Lisinopril 5 mg oral daily. 6. Finasteride 5 mg oral daily. 7. Vitamin D2 of 50,000 units oral every 7 days. 8. Aspirin 81 mg oral daily. 9. Amlodipine 7.5 mg oral daily. 10. Tylenol 650 mg oral every 4 hours as needed. 11. Tramadol 50 mg oral every 8 hours as needed. 12. Metformin XR 500 mg oral twice daily. 13. Robitussin DM oral every 6 hours as needed. 14. Glucagon emergency kit 1 mg subcutaneous as needed. 15. MiraLAX 17 g oral daily as needed. 16. Novolin N 10 units subcutaneous daily. 17. Levemir 10 units subcutaneous at bedtime. 18. Eliquis 5 mg oral twice daily, not to be started until 04/25/2019. DISCONTINUED MEDICATIONS: None. Primary diagnosis: Malnutrition s/p PEG tube placement Secondary Diagnosis: HTN, IDDM, COPD, chronic Afib, BPH, dementia HISTORY OF PRESENT ILLNESS/HOSPITAL COURSE: This is an 83-year-old male who presented for his PEG tube procedure on 04/21/2019, with Dr. Sagastume. The patient had had decreased p.o. intake and was only eating 20% of his pureed meals at the correction. He did pass a barium swallow study. The daughter who is being the [facility] was requesting PEG tube placement for the patient. The patient was then admitted to the Medicine Service and taken to the medical floor for continued care of his PEG tube placement. He tolerated the procedure well. An abdominal binder was placed so that the patient would not pull the PEG tube out. PEG tube feeds were initiated. Dietitian was consulted and recommendations were given for the PEG tube feeds. The patient was restarted on all of his home medications. His chronic conditions remained stable throughout his stay. The PEG tube was in place and appeared intact on day of discharge. The patient is to hold any anticoagulation until 04/25/2019. The patient can be discharged back to the correction with continued PEG tube care and PEG tube feedings. Abdominal binder to remain in place to protect the PEG tube. DISPOSITION: Stable. DISCHARGE INSTRUCTIONS: 1. Location: [facility] in [place]. 2. Diet: PEG tube feeds. 3. Activity: Ad shyann with fall precautions. 4. Follow up with PCP, Dr. Hicks within a week. Job ID: [id number] [facility]
== END 2019-04-22 16:13 ==
LOC: SDC 09:46 → SURG B 14:55
PROVIDERS: ADMIT Internal Medicine; ATTEND Internal Medicine
PROC: 0DH63UZ Insertion of Feeding Device into Stomach, Percutaneous Approach (ICD-10-PCS; principal; 2019-04-21)
DX: E44.0 Moderate protein-calorie malnutrition (principal); K44.9 Diaphragmatic hernia without obstruction or gangrene; K21.0 Gastro-esophageal reflux disease with esophagitis; I10 Essential (primary) hypertension; E11.9 Type 2 diabetes mellitus without complications; I48.20 Chronic atrial fibrillation, unspecified; N40.0 Benign prostatic hyperplasia without lower urinary tract symptoms; F03.90 Unspecified dementia, unspecified severity, without behavioral disturbance, psychotic disturbance, mood disturbance, and anxiety; Z79.4 Long term (current) use of insulin; Z79.899 Other long term (current) drug therapy; Z79.82 Long term (current) use of aspirin; Z79.01 Long term (current) use of anticoagulants
CPT/HCPCS: 43246; 80053; 82962 ×2; 83036; 84145; 85025; 96360; 96361 ×2; 97116; 97139 ×2; G0378 ×2; 36415; 36416; J0690; J1815; J2001; J2704

== ENCOUNTER 2019-05-09 16:11 | Inpatient (IN) | payer MEDICARE, MEDICAID ==
[~2019-05-09 16:11] MED LIST: Iopamidol-370 76% 500 ML 1 ML ONE
[2019-05-09 17:03] LABS: Bacteria/HPF 3+ HPF (None Seen); Bilirubin Negative (Negative); Blood, Urine Trace (Negative); Clarity Clear (Clear); Glucose, Urine (Dipstick) 500 mg/dL (Negative); Leukocyte 250 Leu/uL (Negative); Nitrite Negative (Negative); Protein, Urine (Dipstick) 100 mg/dL (Neg-Trace); RBC/HPF 0-3 HPF (0-3); Squamous Epithelial None Seen HPF (0-3); Urobilinogen 3 mg/dL (Less than 2)
[2019-05-09 17:05] LABS: Hemoglobin 14.9 g/dL (14.0-18.0); Mean Corpuscular HGB CONC 33.6 g/dL (32.0-36.0); Mean Corpuscular Hemoglobin 31.6 pg (27.0-31.0); Mean Platelet Volume 9.4 fL (7.4-10.4); Platelet Count 305 thou/uL (130-400); RBC Distribution Width 14.6 % (11.5-14.5); Red Blood Cell (RBC) Count 4.72 mill/uL (4.70-6.10); White Blood Cell (WBC) Count 16.1 thou/uL (4.8-10.8)
--- NOTE | 2019-05-09 17:06 | RAD ---
Portable frontal chest radiograph: 05/09/2019 COMPARISON: 03/19/2019 HISTORY: Altered mental status, vomiting FINDINGS: There is a linear lucency in the lateral and inferior right costophrenic angle region which is felt to most likely represent artifact associated with skin fold. Artifact on the basis of skinfold is favored over pneumothorax. There are coarse increased linear interstitial densities in fely th lung bases and bilateral perihilar regions, left greater than right, stable, evidence of chronic interstitial disease. No pleural fluid is seen. There is no focal consolidation or alveolar edema. IMPRESSION: Portable frontal chest radiograph as detailed above. The right costophrenic angle and the interstitial opacities detailed above could be better assessed with a PA and lateral radiograph of the chest.
[2019-05-09 17:22] LABS: Band 36 % (5-11); Lymphocytes 2 % (21-51); MDiff Complete? YES; Metamyelocyte 2 % (0-0); Monocytes 2 % (0-10); Neutrophil 55 % (42-75); Platelet Morphology Comment Appears Adequate; Polychromasia SLIGHT = 2-3 cells (100X) (0-2/hpf); Reactive Lymphocytes 3 % (0-10)
[2019-05-09 17:25] LABS: ALT (SGPT) 8 U/L (8-55); AST (SGOT) 10 U/L (5-34); Albumin 3.4 g/dL (3.4-4.8); Alkaline Phosphatase 52 U/L (40-110); Anion Gap 16 mmol/L (10-20); BUN (Urea Nitrogen) 31 mg/dL (8.4-25.7); Bilirubin, Total 1.4 mg/dL (0.2-1.2); Calc. Creatinine Clearance 0 mL/min (70-130); Calcium 9.6 mg/dL (7.8-10.44); Carbon Dioxide 22 mmol/L (23-31); Chloride 104 mmol/L (98-107); Estimated GFR-MDRD 86; Globulin 3.3 g/dL (2.4-3.5); Glucose 239 mg/dL (83-110); Magnesium 2.1 mg/dL (1.6-2.6); Potassium 4.5 mmol/L (3.5-5.1); Protein, Total 6.7 g/dL (5.8-8.1); Sodium 137 mmol/L (136-145)
--- NOTE | 2019-05-09 18:20 | CT ---
CT BRAIN WITHOUT CONTRAST: Comparison: 10-17-18 History: Projectile vomiting, altered mental status. Technique: Multiple contiguous axial images were obtained in a CT of the brain without contrast. FINDINGS: There are scattered hypodensities in the subcortical and periventricular white matter, likely seconda ry to small vessel ischemic disease. No large confluent infarction is seen. There is no evidence of h ydrocephalus, intracranial hemorrhage, or extraaxial fluid collections. The calvarium and overlying soft tissues are unremarkable. The visualized paranasal sinuses and masto id air cells are well aerated. IMPRESSION: No evidence of acute intracranial abnormality. POS: [facility]
[2019-05-09] MEDS ORDERED: Cefepime 2 GM VIAL ONE (18:21)
[2019-05-09] MEDS ORDERED: metroNIDAZOLE 500 MG/100 ML BAG ONE (18:21)
--- NOTE | 2019-05-09 18:31 | PDOC.FPRHP ---
- History of Present Illness Chief Complaint: projectile vomiting and respiratory failure History of Present Illness: Mr. Robertson is an 83 yo [place] resident with dementia who presents after episode of projectile vomiting and witnessed aspiration today. His daughter states that he is not oriented at baseline. He is currently somnolent and not oriented or communicative, therefore history is gathered from EMS, NH, and daughter. She is a relatively poor historian. She states that he has a history of dementia and has been progressively worsening over the past year. He had a PEG tube placed for malnutrition and decreased oral intake. She states he does not take food by mouth anymore, only receiving tube feeds. She states that today he had an episode of emesis at the [place] and then choked. She states he has a history of aspiration pneumonia in the past. ED Course: Flagyl 500mg, Cefepime 2g, NS 1L - Allergies/Adverse Reactions Allergies Allergy/AdvReac Type Severity Reaction Status Date / Time No Known Allergies Allergy Verified 04/22/19 01:13 - Home Medications Medication Instructions Recorded Confirmed Type Acetaminophen 650 mg PO Q4H PRN 10/17/18 05/10/19 History Aspirin [Aspir-Low] 81 mg PO DAILY 10/17/18 05/10/19 History Atorvastatin Calcium [Lipitor] 20 mg PO HS 10/17/18 05/10/19 History Docusate Sodium 100 mg PER TUBE BID 10/17/18 05/10/19 History Ergocalciferol (Vitamin D2) 50,000 unit PER TUBE Q7D 10/17/18 05/10/19 History [Vitamin D2] Finasteride [Proscar] 5 mg PER TUBE DAILY 10/17/18 05/10/19 History Lisinopril 5 mg PER TUBE DAILY 10/17/18 05/10/19 History amLODIPine Besylate [Norvasc] 7.5 mg PER TUBE DAILY 10/17/18 05/10/19 History traMADol HCl [Tramadol HCl] 50 mg PER TUBE Q8H PRN 10/17/18 05/10/19 History Insulin Detemir [Levemir] 10 unit SQ HS 04/20/19 05/10/19 History Insulin NPH Human Isophane 10 units SQ DAILY 04/20/19 05/10/19 History [NovoLIN N] Polyethylene Glycol 3350 [Miralax] 17 gm PER TUBE DAILY PRN 04/20/19 05/10/19 History Apixaban [Eliquis] 5 mg PER TUBE BID 05/10/19 05/10/19 History Magnesium Hydroxide [Milk Of 30 ml PO DAILY PRN 05/10/19 05/10/19 History Magnesium] Pantoprazole [Protonix] 40 mg PER TUBE DAILY 05/10/19 05/10/19 History metFORMIN XR [Glucophage XR] 500 mg PER TUBE BID 05/10/19 05/10/19 History - History PMHx: Dementia, IDDM2, HTN, Afib, Hx DVA, COPD PSHx: Peg placement 04/21/19 Daughter does not know much of his history. He is unable to give more. FHx: Non-contributory Social: Unable to obtain due to mental status. Last admission current tobacco use was documented. Denies drug or alcohol use. - Review of Systems ROS unobtainable: due to mental status - Vital signs Weight 66kg, Selected Entries 05/09/19 20:05 Temperature 97.3 F L Pulse Rate 88 Blood Pressure 108/71 [Semi-Fowlers] Respiratory 20 Rate O2 Sat by Pulse 92 L Oximetry Oxygen Flow 4 Rate Oxygen Delivery Nasal Cannula Method - Physical Exam Constitutional: NAD -Constitutional: Thin, not alert or oriented. Able to be aroused with firm stimulation, otherwise sleeping. HEENT: normocephalic and atraumatic, PERRLA, conjunctiva clear, grossly normal vision, grossly normal hearing -HEENT: Has top and bottom dentures, does not have them with him. Neck: trachea midline, no LAD Heart: normal S1/S2, no murmurs/rubs/gallops, pulses present, no edema -Heart: Irregular rhythm, normal rate Lungs: no respiratory distress, good air movement -Lungs: Coarse breath sounds bilaterally, significant upper airway noise obscuring lower airway sounds Abdomen: soft, non-tender Musculoskeletal: normal structure, normal tone -Neurological: Patient is bed-bound at baseline. Did not cooperate with neuro exam Skin: no rash/lesions, good turgor, capillary refill <2 seconds Heme/Lymphatic: no unusual bruising or bleeding, no purpura, no petechia -Psychiatric: Demented FMR H&P: Results - Labs Result Diagrams: 05/10/19 04:17 05/10/19 04:17 Lab results: WBC 16.1 thou/uL (4.8-10.8) H 05/09/19 16:51 Hgb 14.9 g/dL (14.0-18.0) 05/09/19 16:51 Hct 44.4 % (42.0-52.0) 05/09/19 16:51 MCV 94.0 fL (78.0-98.0) 05/09/19 16:51 Plt Count 305 thou/uL (130-400) 05/09/19 16:51 Band Neuts % (Manual) 36 % (5-11) H 05/09/19 16:51 Sodium 137 mmol/L (136-145) 05/09/19 16:51 Potassium 4.5 mmol/L (3.5-5.1) 05/09/19 16:51 Chloride 104 mmol/L (98-107) 05/09/19 16:51 Carbon Dioxide 22 mmol/L (23-31) L 05/09/19 16:51 BUN 31 mg/dL (8.4-25.7) H 05/09/19 16:51 Creatinine 0.85 mg/dL (0.7-1.3) 05/09/19 16:51 Glucose 239 mg/dL (83-110) H 05/09/19 16:51 Calcium 9.6 mg/dL (7.8-10.44) 05/09/19 16:51 Total Bilirubin 1.4 mg/dL (0.2-1.2) H 05/09/19 16:51 AST 10 U/L (5-34) 05/09/19 16:51 ALT 8 U/L (8-55) 05/09/19 16:51 Alkaline Phosphatase 52 U/L (40-110) 05/09/19 16:51 Serum Total Protein 6.7 g/dL (5.8-8.1) 05/09/19 16:51 Albumin 3.4 g/dL (3.4-4.8) 05/09/19 16:51 Urine Ketones 10 mg/dL (Negative) A 05/09/19 16:47 Urine Blood Trace (Negative) A 05/09/19 16:47 Urine Nitrite Negative (Negative) 05/09/19 16:47 Ur Leukocyte Esterase 250 Bridgette/uL (Negative) A 05/09/19 16:47 Urine RBC 0-3 HPF (0-3) 05/09/19 16:47 Urine WBC 11-20 HPF (0-3) A 05/09/19 16:47 Ur Squamous Epith Cells None Seen HPF (0-3) 05/09/19 16:47 Urine Bacteria 3+ HPF (None Seen) A 05/09/19 16:47 - Radiology Interpretation CT scan - head Status: report reviewed by me (FINDINGS: There are scattered hypodensities in the subcortical and periventricular white matter, likely secondary to small vessel ischemic disease. No large confluent infarction is seen. There is no evidence of hydrocephalus, intracranial hemorrhage, or extraaxial fluid collections. The calvarium and overlying soft tissues are unremarkable. The visualized paranasal sinuses and mastoid air cells are well aerated.) Chest x-ray Status: report reviewed by me (FINDINGS: There is a linear lucency in the lateral and inferior right costophrenic angle region which is felt to most likely represent artifact associated with skin fold. Artifact on the basis of skinfold is favored over pneumothorax. There are coarse increased linear interstitial densities in both lung bases and bilateral perihilar regions, left greater than right, stable, evidence of chronic interstitial disease. No pleural fluid is seen. There is no focal consolidation or alveolar edema. IMPRESSION: Portable frontal chest radiograph as detailed above. The right costophrenic angle and the interstitial opacities detailed above could be better assessed with a PA and lateral radiograph of the chest.) CT scan - abdomen Status: report reviewed by me (IMPRESSION: 1. No evidence of acute intraabdominal/pelvic abnormality. 2. Moderate stool retention in the colon. 3. Diverticulosis. 4. Bilateral lower lobe pneumonia.) FMR H&P: A/P - Plan Acute hypoxic respiratory failure 2/2 aspiration pneumonia vs aspiration pneumonitis -Recent PEG placement for dysphagia/decreased oral intake. Passed Barium swallow study in hospitalization for PEG placement, but has failed other swallow study outpatient. Witnessed vomiting with aspiration/choking. -Severe respiratory distress, requiring supplemental oxygen, elevated WBC w/ left shift. -Will cover with Unasyn (05/09) -Procal, Lactic, Blood and Urine cultures pending. -ABG ordered d/t somnolence -CT suggestive of bilateral basilar pneumonia. Lactic acidosis -will trend Chronic interstitial lung disease -mentioned on chest X-ray -no known diagnosis, unknown etiology Insulin depended diabetes mellitus -Continue home insulin regimen, SSI, and hypoglycemia protocol. ACHS accuchecks. HTN -will restart home medications once medically stable Chronic atrial fibrillation -on Eliquis, will continue COPD -DuoNebs scheduled q 3 hours, maintain O2 sat of 90% or greater. HLD -Continue statin Disposition/LOS: Dispo: guarded, inpatient, likely LOS > 48 hours. Will consult Palliative care for complex decision making. Code: Full VTE: eliquis FMR H&P: Upper Level - Pertinent history 83 [facility] presents with projectile vomiting prior to arrival with associated coughing episode/aspiration. Patient had PEG tube placed 04/21 for moderate protein-calorie malnutrition. Patient presumptively treated for PNA prior to PEG tube placement. Uncertain whether CAP or aspiration pneumonia. Patient's daughter is currently MPOA. After lengthy discussion with patient's daughter, she desires to keep patient full code. Patient solmnolent and difficult to arouse. He did wake during initial exam and acknowledged presence of daughter. Patient unable to provide any history. - Pertinent findings General: Unable to assess mental status. Somnolent and difficult to arouse. Awakens with deep sternal rub. Mouth breathing, mildly tachypneic. Cachectic appearing HEENT: Dry MMM Card: Irregular rhythm. Regular rate. Resp: Decreased breath sounds, coarse breath sounds bibasilar Abdomen: Soft, non-tender, no distention, Bowel sounds present Ext: No appreciable edema - Plan Date/Time: 05/09/19 1830 IDesi, have evaluated this patient and agree with findings/plan as outlined by investigator internal affairs resident. Pertinent changes/additions are listed here. Acute hypoxic respiratory failure 2/2 suspected aspiration pneumonia vs. pneumonitis - Patient with recent PEG tube placement 04/21 - Witnessed aspiration/projective vomiting - Given severity of respiratory distress and O2 requirement, along with clinical findings, will treat with Unasyn (05/09) - LA elevated; will trend and fluid resuscitate - Procal pending; will trend to assess effectiveness of antibiotic regimen - Blood cultures pending - Leukocytosis with bandemia; will trend - ABG performed d/t somnolence; concern for severe hypoxemia or CO2 retention - Continue to monitor respiratory status - CXR and CT abdomen/pelvis suggestive of bilateral pneumonia Leukocytosis with bandemia - Trend - 2/2 above - WBC 16 w/ 36% bands Lactic acidosis - 3.8 on admission; repeat pending Chronic ILD - Unknown etiology - Noted on CXR, may be scarring from recurrent infection IDDM type II - Continue insulin regimen - Mild SSI - ACHS accuchecks HTN - Continue home meds Atrial fibrillation, chronic - Continue eliquis COPD - Duonebs PRN - O2 sats to maintain 88-90% HLD - Continue home medications DVT PPX: Eliquis Code Status: Full, discussed with MPOA patient's daughter Dispo: Guarded. Admit to medical. Continue antibiotics and respiratory support. Addendum - Attending - Attending Attestation Date/Time: 05/10/19 3204 I personally evaluated the patient and discussed the management with the team. I agree with the History, Examination, Assessment and Plan documented above with any addition or exceptions noted below. Patient appears mildly tachypneic, but with no inc wob. He cannot answer he questions due to his mental status and h/o dementia. I can hear no crackles at the bases. Unasyn for aspiration. Supportive care otherwise.
[2019-05-09 18:38] LABS: INR-International Normal Ratio 1.7; PTT 33.2 SEC (22.9-36.1); Prothrombin Time 19.7 SEC (12.0-14.7)
--- NOTE | 2019-05-09 19:29 | CT ---
CT ABDOMEN AND PELVIS WITH CONTRAST: Comparison: None. History: Projectile vomiting, hypoxia. Small bowel obstruction. Technique: Multiple contiguous axial images were obtained in a CT of the abdomen and pelvis with cont rast. Sagittal and coronal reformats were performed. FINDINGS: The liver, gallbladder, kidneys, adrenal glands, spleen, and pancreas are unremarkable. No free air, free fluid, or stranding changes are seen in the abdomen or pelvis. A moderate amount of stool is seen in the colon, particularly in the rectal vault. Scattered divertic liliane are seen in the colon. The small bowel is normal in caliber without evidence of obstruction. A ga strostomy tube is seen in the stomach. The appendix is normal. No abdominal or pelvic lymphadenopathy are seen. Atherosclerotic calcifications are seen in the aorta. Degenerative changes are seen in the spine. The abdominal wall soft tissues are unremarkable. There a re bilateral lower lobe areas of consolidation in the lungs. IMPRESSION: 1. No evidence of acute intraabdominal/pelvic abnormality. 2. Moderate stool retention in the colon. 3. Diverticulosis. 4. Bilateral lower lobe pneumonia. POS: C
[2019-05-09] MEDS ORDERED: Dextrose 5 %-0.45 % NaCl 1,000 ML IV SCH (20:00)
[2019-05-09] MEDS ORDERED: Ondansetron PF 4 MG/2 ML Vial IVP PRN (20:33)
[2019-05-09] MEDS ORDERED: Dextrose 5% in Water 1,000 ML IV PRN (20:33)
[2019-05-09] MEDS ORDERED: Dextrose 50% Abboject 50 ML SYRINGE SLOW IVP PRN (20:33)
[2019-05-09] MEDS ORDERED: HumaLOG 300 UNITS/3 ML VIAL SC PRN (20:33)
[2019-05-09] MEDS ORDERED: Senokot S 8.6-50 MG TAB PER TUBE PRN (20:33)
[2019-05-09] MEDS ORDERED: Acetaminophen 650 MG Suppository PR PRN (20:33)
[2019-05-09] MEDS ORDERED: Insulin Glargine 12 UNITS in Pre-Filled Syringe 1 EACH SC SCH (21:00)
[2019-05-09] MEDS: Ampicillin/Sulbactam 3 GM in Sodium Chloride 0.9% 100 ML IVPB SCH (22:10)
[2019-05-09] MEDS: Famotidine 20 MG TAB PER TUBE SCH (22:11)
[2019-05-10] MEDS: metroNIDAZOLE 500 MG in Premix Bag 1 BAG IVPB SCH ×2 (00:07→05:42)
[2019-05-10 00:23] LABS: Actual Bicarbonate (HCO3a) 23.6 mEq/L (22-28); Base Excess (BEa) 1.1 mEq/L (-2.0 to +3.0); CO2 Tension 31.4 mmHg (35.0-45.0); Calcium, Ionized 1.23 mmol/L (1.12-1.30); Carboxyhemoglobin (COHb) 1.4 gm% (0.0-3.0); O2 Tension (PaO2) 63.7 mmHg (> 60.0); Potassium - ABG Lab 4.12 mmol/L (3.70-5.30); Puncture Site LRA; pH, Arterial 7.49 (7.35-7.45)
[2019-05-10 00:48] LABS: Lactic Acid 5.2 mmol/L (0.5-2.2)
[2019-05-10] MEDS ORDERED: Sodium Chloride 0.9% 1,000 ML IV SCH (01:00)
[2019-05-10] MEDS ORDERED: Lactated Ringer's 1,000 ML IV SCH (01:00)
[2019-05-10] MEDS ORDERED: Polyethylene Glycol 3350 17 GM Packet PER TUBE PRN (01:14)
[2019-05-10 02:49] VITALS: BMI 25.9
[2019-05-10] MEDS: Ampicillin/Sulbactam 3 GM in Sodium Chloride 0.9% 100 ML IVPB SCH ×4 (03:12→20:56)
[2019-05-10 04:43] LABS: Band 14 % (5-11); Hemoglobin 13.6 g/dL (14.0-18.0); Lymphocytes 19 % (21-51); MDiff Complete? YES; Mean Corpuscular HGB CONC 32.8 g/dL (32.0-36.0); Mean Corpuscular Hemoglobin 31.4 pg (27.0-31.0); Mean Corpuscular Volume 95.5 fL (78.0-98.0); Mean Platelet Volume 9.7 fL (7.4-10.4); Monocytes 9 % (0-10); Myelocyte 1 % (0-0); Neutrophil 57 % (42-75); Platelet Count 227 thou/uL (130-400); Platelet Morphology Comment Appears Adequate; RBC Distribution Width 14.6 % (11.5-14.5); Red Blood Cell (RBC) Count 4.35 mill/uL (4.70-6.10); White Blood Cell (WBC) Count 13.4 thou/uL (4.8-10.8)
[2019-05-10 04:48] LABS: ALT (SGPT) Less than 7 U/L (8-55); AST (SGOT) 9 U/L (5-34); Alkaline Phosphatase 45 U/L (40-110); Anion Gap 13 mmol/L (10-20); BUN (Urea Nitrogen) 27 mg/dL (8.4-25.7); Bilirubin, Total 1.5 mg/dL (0.2-1.2); Calc. Creatinine Clearance 69 mL/min (70-130); Calcium 9.5 mg/dL (7.8-10.44); Carbon Dioxide 24 mmol/L (23-31); Chloride 107 mmol/L (98-107); Estimated GFR-MDRD Greater than 90; Globulin 3.2 g/dL (2.4-3.5); Glucose 184 mg/dL (83-110); Potassium 4.3 mmol/L (3.5-5.1); Protein, Total 6.2 g/dL (5.8-8.1); Sodium 140 mmol/L (136-145)
[2019-05-10] MEDS ORDERED: Cefepime 2 GM in Sodium Chloride 0.9% 100 ML IVPB SCH (05:00)
[2019-05-10] MEDS: Lactated Ringer's 1,000 ML IV SCH ×3 (05:42→21:40)
[2019-05-10] MEDS: HumaLOG 300 UNITS/3 ML VIAL SC PRN ×2 (06:11→17:39)
--- NOTE | 2019-05-10 07:24 | PDOC.FM ---
- Subjective Subjective: pt resting comfortably in bed, denies dyspnea or pain. AOx0 - Objective Vital Signs & Weight: Vital Signs (12 hours) Temp Pulse Resp BP Pulse Ox 05/10/19 06:51 94 L 05/10/19 06:50 79 20 94 L 05/10/19 04:11 98.3 F 81 20 136/74 94 L 05/10/19 00:40 98.1 F 88 20 149/83 H 96 05/10/19 00:15 93 L 05/09/19 20:05 97.3 F L 88 20 108/71 92 L Weight Weight 66.5 kg Result Diagrams: 05/10/19 04:17 05/10/19 04:17 Phys Exam - Physical Examination Constitutional: NAD dry MM Neck: no nodes Respiratory: clear to auscultation bilateral Cardiovascular: no significant murmur Gastrointestinal: non-tender Musculoskeletal: no edema, pulses present Neurological: non-focal Psychiatric: normal affect Skin: no rash Dx/Plan (1) CAP (community acquired pneumonia) Code(s): J18.9 - PNEUMONIA, UNSPECIFIED ORGANISM Status: Acute (2) COPD (chronic obstructive pulmonary disease) Status: Acute (3) Chronic a-fib Code(s): I48.2 - CHRONIC ATRIAL FIBRILLATION * DO NOT USE * Status: Acute (4) HTN (hypertension) Code(s): I10 - ESSENTIAL (PRIMARY) HYPERTENSION Status: Acute (5) Hyperlipidemia Code(s): E78.5 - HYPERLIPIDEMIA, UNSPECIFIED Status: Acute (6) Insulin dependent diabetes mellitus Code(s): E11.9 - TYPE 2 DIABETES MELLITUS WITHOUT COMPLICATIONS; Z79.4 - GREEN MEAT PACKER (CURRENT) USE OF INSULIN Status: Acute - Plan Plan: Acute hypoxic respiratory failure 2/2 aspiration pneumonia -Recent PEG placement for dysphagia/decreased oral intake. Passed Barium swallow study in hospitalization for PEG placement, but has failed other swallow study outpatient. Witnessed vomiting with aspiration/choking. -Severe respiratory distress, requiring supplemental oxygen, elevated WBC w/ left shift. -elevated LA and procal, BCx NGTD - Unasyn (05/09) Lactic acidosis -will trend Chronic interstitial lung disease -mentioned on chest X-ray -no known diagnosis, unknown etiology Insulin depended diabetes mellitus -Continue home insulin regimen, SSI, and hypoglycemia protocol. ACHS accuchecks. HTN -will restart home medications once medically stable Chronic atrial fibrillation -on Eliquis, will continue COPD -DuoNebs scheduled q 3 hours, maintain O2 sat of 90% or greater. HLD -Continue statin Dispo: continue abx therapy, monitor respiratory status Code: Full VTE: nikolay
[2019-05-10 08:01] LABS: Lactic Acid 4.6 mmol/L (0.5-2.2)
[2019-05-10] MEDS: Finasteride 5 MG TAB FS SCH (08:31)
[2019-05-10] MEDS: Aspirin 81 mg Enteric Coated Tablet PO SCH (08:31)
[2019-05-10] MEDS: Docusate 100 MG CAP PER TUBE SCH ×2 (08:31→20:37)
[2019-05-10] MEDS: metFORMIN 500 MG TAB PER TUBE SCH ×2 (08:31→17:39)
[2019-05-10] MEDS: Apixaban 5 MG TAB PER TUBE SCH ×2 (08:31→20:37)
[2019-05-10] MEDS: Famotidine 20 MG TAB PER TUBE SCH ×2 (08:31→20:37)
[2019-05-10] MEDS: Pantoprazole 40 MG GRANULES PACKET PER TUBE SCH (08:31)
[2019-05-10] MEDS: NPH, Human Insulin Isophane 300 UNIT/3 ML VIAL SQ SCH (09:48)
[2019-05-10] MEDS: Atorvastatin Calcium 20 MG TAB PER TUBE SCH (20:37)
[2019-05-10] MEDS: Insulin Glargine 10 UNITS in Pre-Filled Syringe 1 EACH SC SCH (20:59)
[2019-05-10] MEDS ORDERED: Non-Formulary Item 1 EACH (Insulin Detemir [Levemir] 10 UNIT) SQ SCH (21:00)
[2019-05-11] MEDS: Ampicillin/Sulbactam 3 GM in Sodium Chloride 0.9% 100 ML IVPB SCH ×4 (03:40→20:52)
[2019-05-11 05:16] LABS: ALT (SGPT) Less than 7 U/L (8-55); AST (SGOT) 12 U/L (5-34); Albumin 3.1 g/dL (3.4-4.8); Alkaline Phosphatase 53 U/L (40-110); Anion Gap 18 mmol/L (10-20); BUN (Urea Nitrogen) 18 mg/dL (8.4-25.7); Bilirubin, Total 1.1 mg/dL (0.2-1.2); Calc. Creatinine Clearance 78 mL/min (70-130); Calcium 9.6 mg/dL (7.8-10.44); Carbon Dioxide 18 mmol/L (23-31); Chloride 110 mmol/L (98-107); Estimated GFR-MDRD Greater than 90; Globulin 3.5 g/dL (2.4-3.5); Glucose 161 mg/dL (83-110); Potassium 3.8 mmol/L (3.5-5.1); Protein, Total 6.6 g/dL (5.8-8.1); Sodium 142 mmol/L (136-145)
[2019-05-11] MEDS: HumaLOG 300 UNITS/3 ML VIAL SC PRN ×2 (05:16→12:41)
[2019-05-11] MEDS: Lactated Ringer's 1,000 ML IV SCH ×3 (06:15→23:27)
[2019-05-11 06:17] LABS: #Lymphocytes 0.7 thou/uL (1.20-3.40); #Monocytes 0.6 thou/uL (0.11-0.59); #Neutrophils 9.5 thou/uL (1.40-6.50); %Basophils 0.2 % (0.0-1.0); %Eosinophils 0.1 % (0.0-10.0); %Monocytes 5.7 % (0.0-10.0); Hemoglobin 11.4 g/dL (14.0-18.0); Mean Corpuscular HGB CONC 30.3 g/dL (32.0-36.0); Mean Corpuscular Hemoglobin 29.4 pg (27.0-31.0); Mean Corpuscular Volume 97.3 fL (78.0-98.0); Mean Platelet Volume 9.6 fL (7.4-10.4); Platelet Count 230 thou/uL (130-400); RBC Distribution Width 14.6 % (11.5-14.5); Red Blood Cell (RBC) Count 3.86 mill/uL (4.70-6.10); White Blood Cell (WBC) Count 10.8 thou/uL (4.8-10.8)
--- NOTE | 2019-05-11 07:20 | PDOC.FM ---
- Subjective Subjective: pt much more alert today, orientedx0, denies pain or SOB - Objective Vital Signs & Weight: Vital Signs (12 hours) Temp Pulse Resp BP Pulse Ox 05/11/19 06:38 91 L 05/11/19 06:36 91 16 91 L 05/11/19 06:12 98.9 F 93 93 H 124/80 94 L 05/11/19 02:15 93 16 05/11/19 01:00 97.9 F 93 18 136/81 93 L 05/10/19 22:30 93 16 93 L 05/10/19 21:28 96 05/10/19 20:00 97.9 F 95 12 132/80 93 L Weight Admit Weight 66.497 kg Weight 66.497 kg I&O: 05/10/19 05/11/19 05/12/19 06:59 06:59 06:59 Intake Total 3670 Balance 3670 Result Diagrams: 05/12/19 05:15 05/12/19 05:15 Phys Exam - Physical Examination Constitutional: NAD HEENT: moist MMs Neck: supple Respiratory: clear to auscultation bilateral Cardiovascular: RRR, no significant murmur Gastrointestinal: non-tender Neurological: non-focal Skin: no rash Dx/Plan (1) CAP (community acquired pneumonia) Code(s): J18.9 - PNEUMONIA, UNSPECIFIED ORGANISM Status: Acute (2) COPD (chronic obstructive pulmonary disease) Status: Acute (3) Chronic a-fib Code(s): I48.2 - CHRONIC ATRIAL FIBRILLATION * DO NOT USE * Status: Acute (4) HTN (hypertension) Code(s): I10 - ESSENTIAL (PRIMARY) HYPERTENSION Status: Acute (5) Hyperlipidemia Code(s): E78.5 - HYPERLIPIDEMIA, UNSPECIFIED Status: Acute (6) Insulin dependent diabetes mellitus Code(s): E11.9 - TYPE 2 DIABETES MELLITUS WITHOUT COMPLICATIONS; 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 Passed Barium swallow study in hospitalization for PEG placement, but has failed other swallow study outpatient. Witnessed vomiting with aspiration/choking. -Severe respiratory distress, requiring supplemental oxygen, elevated WBC w/ left shift. -elevated LA and procal, BCx NGTD - Unasyn (05/09) Lactic acidosis -improved Chronic interstitial lung disease -mentioned on chest X-ray -no known diagnosis, unknown etiology Insulin dependent diabetes mellitus -Continue home insulin regimen, SSI, and hypoglycemia protocol. ACHS accuchecks. HTN -will restart home medications once medically stable Chronic atrial fibrillation -on Eliquis, will continue COPD -DuoNebs scheduled q 3 hours, maintain O2 sat of 90% or greater. HLD -Continue statin Dispo: continue abx therapy, monitor respiratory status Code: Full VTE: eliquis Addendum - Attending - Attending Attestation Date/Time: 05/13/19 2094 I personally evaluated the patient and discussed the management with Dr. Cooper I agree with the History, Examination, Assessment and Plan documented above with any addition or exceptions noted below.
[2019-05-11] MEDS: Finasteride 5 MG TAB FS SCH (08:55)
[2019-05-11] MEDS: Aspirin 81 mg Enteric Coated Tablet PO SCH (08:55)
[2019-05-11] MEDS: metFORMIN 500 MG TAB PER TUBE SCH ×2 (08:55→18:38)
[2019-05-11] MEDS: Apixaban 5 MG TAB PER TUBE SCH ×2 (08:55→20:51)
[2019-05-11] MEDS: Famotidine 20 MG TAB PER TUBE SCH ×2 (08:55→20:51)
[2019-05-11] MEDS: Pantoprazole 40 MG GRANULES PACKET PER TUBE SCH (08:55)
[2019-05-11] MEDS: NPH, Human Insulin Isophane 300 UNIT/3 ML VIAL SQ SCH (08:55)
[2019-05-11] MEDS: Docusate 100 MG CAP PER TUBE SCH ×2 (08:55→20:51)
[2019-05-11] MEDS: Atorvastatin Calcium 20 MG TAB PER TUBE SCH (20:50)
[2019-05-11] MEDS: Insulin Glargine 10 UNITS in Pre-Filled Syringe 1 EACH SC SCH (20:58)
[2019-05-12] MEDS: Ampicillin/Sulbactam 3 GM in Sodium Chloride 0.9% 100 ML IVPB SCH ×2 (03:15→09:33)
[2019-05-12] MEDS: Lactated Ringer's 1,000 ML IV SCH (04:45)
[2019-05-12 05:55] LABS: ALT (SGPT) 8 U/L (8-55); AST (SGOT) 20 U/L (5-34); Alkaline Phosphatase 62 U/L (40-110); Anion Gap 18 mmol/L (10-20); BUN (Urea Nitrogen) 20 mg/dL (8.4-25.7); Bilirubin, Total 1.2 mg/dL (0.2-1.2); Calc. Creatinine Clearance 72 mL/min (70-130); Calcium 9.6 mg/dL (7.8-10.44); Carbon Dioxide 21 mmol/L (23-31); Chloride 111 mmol/L (98-107); Estimated GFR-MDRD Greater than 90; Globulin 3.6 g/dL (2.4-3.5); Glucose 130 mg/dL (83-110); Potassium 3.6 mmol/L (3.5-5.1); Protein, Total 6.6 g/dL (5.8-8.1); Sodium 146 mmol/L (136-145)
[2019-05-12 06:00] LABS: #Monocytes 0.9 thou/uL (0.11-0.59); #Neutrophils 12.8 thou/uL (1.40-6.50); %Basophils 0.1 % (0.0-1.0); %Eosinophils 0.2 % (0.0-10.0); %Lymphocytes 6.5 % (21.0-51.0); %Monocytes 5.8 % (0.0-10.0); %Neutrophils 87.4 % (42.0-75.0); Hemoglobin 14.5 g/dL (14.0-18.0); Mean Corpuscular HGB CONC 29.3 g/dL (32.0-36.0); Mean Corpuscular Hemoglobin 28.6 pg (27.0-31.0); Mean Corpuscular Volume 97.5 fL (78.0-98.0); Platelet Count 222 thou/uL (130-400); RBC Distribution Width 14.8 % (11.5-14.5); Red Blood Cell (RBC) Count 5.07 mill/uL (4.70-6.10); White Blood Cell (WBC) Count 14.6 thou/uL (4.8-10.8)
--- NOTE | 2019-05-12 06:56 | PDOC.FM ---
- Subjective Subjective: pt resting comfortably in bed, denies pain or SOB. AOx0 - Objective Vital Signs & Weight: Vital Signs (12 hours) Temp Pulse Resp BP Pulse Ox 05/12/19 03:32 98.5 F 104 H 16 138/75 98 05/12/19 01:43 99 16 95 05/11/19 23:42 98.4 F 105 H 16 123/79 99 05/11/19 21:00 99 05/11/19 19:33 97.6 F 108 H 16 137/81 91 L Weight Admit Weight 66.497 kg Weight 66.497 kg I&O: 05/10/19 05/11/19 05/12/19 06:59 06:59 06:59 Intake Total 3670 2265 Balance 3670 2265 Result Diagrams: 05/12/19 05:15 05/12/19 05:15 Phys Exam - Physical Examination Constitutional: NAD HEENT: moist MMs Respiratory: clear to auscultation bilateral Cardiovascular: RRR, no significant murmur Gastrointestinal: no distention Musculoskeletal: pulses present Neurological: moves all 4 limbs Psychiatric: normal affect Skin: no rash Dx/Plan (1) CAP (community acquired pneumonia) Code(s): J18.9 - PNEUMONIA, UNSPECIFIED ORGANISM Status: Acute (2) COPD (chronic obstructive pulmonary disease) Status: Acute (3) Chronic a-fib Code(s): I48.2 - CHRONIC ATRIAL FIBRILLATION * DO NOT USE * Status: Acute (4) HTN (hypertension) Code(s): I10 - ESSENTIAL (PRIMARY) HYPERTENSION Status: Acute (5) Hyperlipidemia Code(s): E78.5 - HYPERLIPIDEMIA, UNSPECIFIED Status: Acute (6) Insulin dependent diabetes mellitus Code(s): E11.9 - TYPE 2 DIABETES MELLITUS WITHOUT COMPLICATIONS; Z79.4 - PRINT WASHER (CURRENT) USE OF INSULIN Status: Acute - Plan Plan: Acute hypoxic respiratory failure 2/2 aspiration pneumonia -Recent PEG placement for dysphagia/decreased oral intake. Passed Barium swallow study in hospitalization for PEG placement, but has failed other swallow study outpatient. Witnessed vomiting with aspiration/choking. -respiratory distress has resolved, -elevated LA and procal, BCx 1/2 yeast- likely contaminate - Unasyn (05/09) , transition to augmentin Lactic acidosis -improved Chronic interstitial lung disease -mentioned on chest X-ray -no known diagnosis, unknown etiology Insulin dependent diabetes mellitus -Continue home insulin regimen, SSI, and hypoglycemia protocol. ACHS accuchecks. HTN -will restart home medications once medically stable Chronic atrial fibrillation -on Eliquis, will continue - hemoptysis likely related to resolving pna. hold eliquis COPD -DuoNebs scheduled q 3 hours, maintain O2 sat of 90% or greater. HLD -Continue statin Dispo: DC today with continued improvement, continue intermittent O2 therapy in NH, PCP to evaluate for continuation of eliquis Code: Full VTE: eliquis held
[2019-05-12] MEDS: Famotidine 20 MG TAB PER TUBE SCH ×2 (09:34→20:30)
[2019-05-12] MEDS: Finasteride 5 MG TAB FS SCH (09:34)
[2019-05-12] MEDS: metFORMIN 500 MG TAB PER TUBE SCH ×2 (09:34→17:33)
[2019-05-12] MEDS: NPH, Human Insulin Isophane 300 UNIT/3 ML VIAL SQ SCH (09:34)
[2019-05-12] MEDS: Pantoprazole 40 MG GRANULES PACKET PER TUBE SCH (09:35)
[2019-05-12] MEDS: Aspirin 81 mg Enteric Coated Tablet PO SCH (09:35)
[2019-05-12] MEDS: Docusate 100 MG CAP PER TUBE SCH ×2 (09:47→20:30)
--- NOTE | 2019-05-12 10:08 | RAD ---
XR Chest 1 View Portable History: Hemoptysis Comparison: Radiograph 05/09/2019 Findings: Abnormal increased interstitial and alveolar markings the lungs. No pneumothorax. Small eff usions. No acute osseous abnormality Impression: Mild increase of lower lobe and perihilar airspace consolidation.
[2019-05-12 10:42] LABS: INR-International Normal Ratio 1.3; PTT 23.4 SEC (22.9-36.1); Prothrombin Time 15.7 SEC (12.0-14.7)
[2019-05-12 11:25] LABS: Heparin Anti 10a (LMWH) 2.88 IU/mL
[2019-05-12] MEDS ORDERED: Furosemide 20 MG/2 ML VIAL SLOW IVP SCH (11:30)
[2019-05-12] MEDS: HumaLOG 300 UNITS/3 ML VIAL SC PRN ×2 (12:22→17:35)
[2019-05-12] MEDS: Amoxicillin/Potassium Clav 875 MG TAB PO SCH (20:30)
[2019-05-12] MEDS: Atorvastatin Calcium 20 MG TAB PER TUBE SCH (20:31)
[2019-05-12] MEDS: Insulin Glargine 10 UNITS in Pre-Filled Syringe 1 EACH SC SCH (20:32)
[2019-05-13] MEDS: HumaLOG 300 UNITS/3 ML VIAL SC PRN ×2 (05:49→12:42)
[2019-05-13 06:37] LABS: ALT (SGPT) 8 U/L (8-55); AST (SGOT) 23 U/L (5-34); Albumin 2.9 g/dL (3.4-4.8); Alkaline Phosphatase 59 U/L (40-110); Anion Gap 17 mmol/L (10-20); BUN (Urea Nitrogen) 31 mg/dL (8.4-25.7); Bilirubin, Total 0.9 mg/dL (0.2-1.2); Calc. Creatinine Clearance 62 mL/min (70-130); Calcium 9.2 mg/dL (7.8-10.44); Carbon Dioxide 22 mmol/L (23-31); Chloride 109 mmol/L (98-107); Estimated GFR-MDRD 85; Globulin 3.5 g/dL (2.4-3.5); Glucose 185 mg/dL (83-110); Potassium 3.5 mmol/L (3.5-5.1); Protein, Total 6.4 g/dL (5.8-8.1); Sodium 144 mmol/L (136-145)
[2019-05-13 06:42] LABS: Band 14 % (5-11); Hemoglobin 11.5 g/dL (14.0-18.0); Hypochromia SLIGHT = 6-15 cells (100X) (0-5/hpf); Lymphocytes 7 % (21-51); MDiff Complete? YES; Mean Corpuscular HGB CONC 31.1 g/dL (32.0-36.0); Mean Corpuscular Hemoglobin 29.5 pg (27.0-31.0); Mean Platelet Volume 9.9 fL (7.4-10.4); Monocytes 4 % (0-10); Neutrophil 75 % (42-75); Platelet Count 291 thou/uL (130-400); Platelet Morphology Comment Appears Adequate; RBC Distribution Width 14.8 % (11.5-14.5); Red Blood Cell (RBC) Count 3.89 mill/uL (4.70-6.10); White Blood Cell (WBC) Count 16.1 thou/uL (4.8-10.8)
--- NOTE | 2019-05-13 06:57 | PDOC.FM ---
- Subjective Subjective: pt sleeping comfortably in bed, no acute events overnight including cough or vomiting - Objective Vital Signs & Weight: Vital Signs (12 hours) Temp Pulse Resp BP Pulse Ox 05/13/19 06:42 92 L 05/13/19 06:41 100 20 92 L 05/13/19 03:16 97.8 F 90 20 108/72 93 L 05/13/19 00:24 97.5 F L 105 H 24 H 127/75 90 L 05/12/19 22:39 98 18 93 L 05/12/19 20:00 99.6 F 104 H 124/83 93 L Weight Admit Weight 66.497 kg Weight 66.497 kg I&O: 05/11/19 05/12/19 05/13/19 06:59 06:59 06:59 Intake Total 3670 2265 2513 Balance 3670 2265 2513 Result Diagrams: 05/13/19 05:39 05/13/19 05:39 Phys Exam - Physical Examination Constitutional: NAD HEENT: moist MMs Neck: no JVD Respiratory: clear to auscultation bilateral Cardiovascular: no significant murmur Gastrointestinal: no distention Musculoskeletal: no edema Neurological: moves all 4 limbs Lymphatic: no nodes Psychiatric: normal affect Skin: no rash Dx/Plan (1) CAP (community acquired pneumonia) Code(s): J18.9 - PNEUMONIA, UNSPECIFIED ORGANISM Status: Acute (2) COPD (chronic obstructive pulmonary disease) Status: Acute (3) Chronic a-fib Code(s): I48.2 - CHRONIC ATRIAL FIBRILLATION * DO NOT USE * Status: Acute (4) HTN (hypertension) Code(s): I10 - ESSENTIAL (PRIMARY) HYPERTENSION Status: Acute (5) Hyperlipidemia Code(s): E78.5 - HYPERLIPIDEMIA, UNSPECIFIED Status: Acute (6) Insulin dependent diabetes mellitus Code(s): E11.9 - TYPE 2 DIABETES MELLITUS WITHOUT COMPLICATIONS; Z79.4 - COAL UNLOADER (CURRENT) USE OF INSULIN Status: Acute - Plan Plan: Acute hypoxic respiratory failure 2/2 aspiration pneumonia -Recent PEG placement for dysphagia/decreased oral intake. Passed Barium swallow study in hospitalization for PEG placement, but has failed other swallow study outpatient. Witnessed vomiting with aspiration/choking. -elevated LA and procal, BCx 1/2 yeast- likely contaminate - Unasyn (05/09) , transitioned to augmentin Lactic acidosis -improved Chronic interstitial lung disease -mentioned on chest X-ray -no known diagnosis, unknown etiology Insulin dependent diabetes mellitus -Continue home insulin regimen, SSI, and hypoglycemia protocol. ACHS accuchecks. HTN -hold for normal blood pressure Chronic atrial fibrillation - hemoptysis likely related to resolving pna. hold eliquis COPD -DuoNebs scheduled q 3 hours, maintain O2 sat of 90% or greater. HLD -Continue statin Dispo: likely dc today Code: Full VTE: nikolay jung
[2019-05-13] MEDS: Aspirin 81 mg Enteric Coated Tablet PO SCH (08:38)
[2019-05-13] MEDS: metFORMIN 500 MG TAB PER TUBE SCH (08:38)
[2019-05-13] MEDS: Docusate 100 MG CAP PER TUBE SCH (08:38)
[2019-05-13] MEDS: Famotidine 20 MG TAB PER TUBE SCH (08:38)
[2019-05-13] MEDS: Pantoprazole 40 MG GRANULES PACKET PER TUBE SCH (08:39)
[2019-05-13] MEDS: Amoxicillin/Potassium Clav 875 MG TAB PO SCH (08:39)
[2019-05-13] MEDS: Finasteride 5 MG TAB FS SCH (08:39)
[2019-05-13] MEDS: NPH, Human Insulin Isophane 300 UNIT/3 ML VIAL SQ SCH (09:03)
[2019-05-13 15:24] VITALS: BP 110/74; TEMP 98.4
== END 2019-05-13 15:41 | DRG 177 ==
LOC: ERS 16:11 → SURG A 19:55
PROVIDERS: ADMIT Emergency Medicine; ATTEND Emergency Medicine
DX: J69.0 Pneumonitis due to inhalation of food and vomit (principal); J96.01 Acute respiratory failure with hypoxia; E87.2 Acidosis; I48.20 Chronic atrial fibrillation, unspecified; N39.0 Urinary tract infection, site not specified; F03.90 Unspecified dementia, unspecified severity, without behavioral disturbance, psychotic disturbance, mood disturbance, and anxiety; J84.9 Interstitial pulmonary disease, unspecified; E78.5 Hyperlipidemia, unspecified; Z51.5 Encounter for palliative care; E11.9 Type 2 diabetes mellitus without complications; I10 Essential (primary) hypertension; J44.9 Chronic obstructive pulmonary disease, unspecified; I48.91 Unspecified atrial fibrillation; Z79.01 Long term (current) use of anticoagulants; Z86.73 Personal history of transient ischemic attack (TIA), and cerebral infarction without residual deficits; Z93.1 Gastrostomy status
CPT/HCPCS: 36415; 36416; 70450; 71045; 74177; 80053; 81003; 81015; 82805; 83605; 83735; 83880; 84145; 84443; 84484; 85025; 85520; 85610; 85730; 87040; 87077; 87086; 87106; 94640; 94760; J0295; J0692; J1815; J1940; J3490; J7620; Q9967

== ENCOUNTER 2019-05-14 04:37 | Inpatient (IN) | payer MEDICARE, MEDICAID ==
[2019-05-14] MEDS ORDERED: Aspirin Chewable 81 MG TAB ONE (05:37)
[2019-05-14] MEDS ORDERED: Enoxaparin Sodium 100 MG/ML SYRINGE ONE (05:49)
[2019-05-14] MEDS ORDERED: Furosemide 40 MG/4 ML VIAL SLOW IVP SCH ×5 (06:00→18:00)
[2019-05-14] MEDS ORDERED: Ondansetron PF 4 MG/2 ML Vial IVP PRN (06:16)
--- NOTE | 2019-05-14 06:37 | PDOC.FPRHP ---
- History of Present Illness Chief Complaint: decreased O2 sat at [place] History of Present Illness: Eric Robertson is a 83 year old M with a PMH of Dementia, DM2, HTN, COPD, CHF who was transferred from outside ED for acute hypoxic respiratory failure. Pt has dementia and is poor historian, pt's daughter provides history. Pt was discharged yesterday from [facility] after being treated for aspiration pneumonia. He was at the snf for a couple hours before they noticed increased work of breathing and he has O2 sat in the 70s. Pt was placed on face mask and it improved to the 90s. At the outside ED, labs were done showing increased white count and elevated BNP in the 2200s. Lactic acid of 3.5 and troponin of 1.632. At outside ED, patient was given levaquin, vancomycin and cefepime. He was also given duoneb and 1 L NS. He was transferred to [facility], were he was given therapeutic lovenox for NSTEMI. - Allergies/Adverse Reactions Allergies Allergy/AdvReac Type Severity Reaction Status Date / Time No Known Allergies Allergy Verified 04/22/19 01:13 - Home Medications Medication Instructions Recorded Confirmed Type Acetaminophen 650 mg PO Q4H PRN 10/17/18 05/10/19 History Aspirin [Aspir-Low] 81 mg PO DAILY 10/17/18 05/10/19 History Atorvastatin Calcium [Lipitor] 20 mg PO HS 10/17/18 05/10/19 History Docusate Sodium 100 mg PER TUBE BID 10/17/18 05/10/19 History Ergocalciferol (Vitamin D2) 50,000 unit PER TUBE Q7D 10/17/18 05/10/19 History [Vitamin D2] Finasteride [Proscar] 5 mg PER TUBE DAILY 10/17/18 05/10/19 History Lisinopril 5 mg PER TUBE DAILY 10/17/18 05/10/19 History amLODIPine Besylate [Norvasc] 7.5 mg PER TUBE DAILY 10/17/18 05/10/19 History traMADol HCl [Tramadol HCl] 50 mg PER TUBE Q8H PRN 10/17/18 05/10/19 History Insulin Detemir [Levemir] 10 unit SQ HS 04/20/19 05/10/19 History Insulin NPH Human Isophane 10 units SQ DAILY 04/20/19 05/10/19 History [NovoLIN N] Polyethylene Glycol 3350 [Miralax] 17 gm PER TUBE DAILY PRN 04/20/19 05/10/19 History Magnesium Hydroxide [Milk Of 30 ml PO DAILY PRN 05/10/19 05/10/19 History Magnesium] Pantoprazole [Protonix] 40 mg PER TUBE DAILY 05/10/19 05/10/19 History metFORMIN XR [Glucophage XR] 500 mg PER TUBE BID 05/10/19 05/10/19 History Amoxicillin/Potassium Clav 875 mg PER TUBE Q12HR #14 tab 05/12/19 Rx [Augmentin] Famotidine [Pepcid] 20 mg PER TUBE BID #30 tab 05/12/19 Rx - History PMHx: CHF, HTN, DM2, COPD, Dementia PSHx: PEG placement on 04/21/19, daughter unsure of remaining FHx: noncontributory Social: denies alcohol, smoking, drug use - Review of Systems ROS unobtainable: due to mental status (unable to adequately assess due to dementia) - Vital signs BP: 133/88 HR: 98 RR: 21 Tmax: 99.6 Pox: 99% on Facemask Wt: 70 kg - Physical Exam Constitutional: other (frail elderly male, A&O X0) HEENT: normocephalic and atraumatic, PERRLA, EOMI, other (dry MM) Neck: supple, trachea midline Chest: no-tender to palpation, no lesions Heart: RRR, normal S1/S2, no murmurs/rubs/gallops -Lungs: decreased air movement throughout, b/l rales, mild exp wheezes Abdomen: soft, non-tender, bowel sounds present -Abdomen: Peg tube in place, no surrounding erythema or drainage Musculoskeletal: normal structure Skin: no rash/lesions, good turgor, capillary refill <2 seconds -Heme/Lymphatic: scattered ecchymoses on arms -Psychiatric: A&OX0 FMR H&P: Results - EKG Interpretation EKG: A fib rate 108, no st changes - Radiology Interpretation Chest x-ray Status: image reviewed by me (diffuse interstitial opacities) FMR H&P: A/P - Problem List (1) NSTEMI (non-ST elevated myocardial infarction) Current Visit: Yes Status: Acute Code(s): I21.4 - NON-ST ELEVATION (NSTEMI) MYOCARDIAL INFARCTION (2) Aspiration pneumonia Current Visit: Yes Status: Acute Code(s): J69.0 - PNEUMONITIS DUE TO INHALATION OF FOOD AND VOMIT (3) CHF exacerbation Current Visit: Yes Status: Acute Code(s): I50.9 - HEART FAILURE, UNSPECIFIED (4) COPD (chronic obstructive pulmonary disease) Current Visit: No Status: Chronic (5) Chronic a-fib Current Visit: No Status: Chronic Code(s): I48.2 - CHRONIC ATRIAL FIBRILLATION * DO NOT USE * (6) HTN (hypertension) Current Visit: No Status: Chronic Code(s): I10 - ESSENTIAL (PRIMARY) HYPERTENSION (7) Hyperlipidemia Current Visit: No Status: Chronic Code(s): E78.5 - HYPERLIPIDEMIA, UNSPECIFIED (8) Insulin dependent diabetes mellitus Current Visit: No Status: Chronic Code(s): E11.9 - TYPE 2 DIABETES MELLITUS WITHOUT COMPLICATIONS; 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.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 - Plan 1) Acute hypoxic respiratory failure - recent admission, discharged 05/13/19 on augmentin for aspiration PNA - likely related to PNA, along with CHF exacerbation - BNP elevated in 2200s - normal sats on facemask, no tachypnea or retractions - lasix not given at outside facility due to sepsis - given levaquin, vanc, and cefepime - admit to tele - will likely need lasix once sepsis resolves - had long conversation with pt's daughter about code status, consulting palliative care 2) NSTEMI - likely 2/2 demand from sepsis 2/2 PNA and CHF exac - trend trops, initial was 1.632 - trend underlying causes - EKG showed A fib with rate of 108, HR in 90s on admission - therapeutic lovenox 3) Sepsis 2/2 pna - elevated lactic acid, wbc count, tachycardic, recent hx of asp pna - continue empiric antibiotics - recently discharged on 05/13 on augmentin 4) CHF exac - BNP 2263 - holding lasix now due to sepsis - strict I/Os, daily weights - likely will need to start lasix once sepsis resolves 5) COPD - slight wheezes on exam - prn duonebs 6) DM2 - will restart home insulin regimen - mild SSI - accuchecks ACHS Dispo: Tele inpatient, anticipate hospital stay >48 hours. Code status: Full Code, daughter was unsure of decision, getting palliative on board
[2019-05-14] MEDS ORDERED: Dextrose 5% in Water 1,000 ML IV PRN (06:56)
[2019-05-14] MEDS ORDERED: Dextrose 50% Abboject 50 ML SYRINGE SLOW IVP PRN (06:56)
[2019-05-14 07:25] LABS: CKMB 9.9 ng/mL (0-6.6)
[2019-05-14] MEDS ORDERED: Furosemide 40 MG/4 ML VIAL ONE (13:22)
[2019-05-14] MEDS ORDERED: Piperacillin/Tazobactam 4.5 GM VIAL ONE (13:22)
--- NOTE | 2019-05-14 18:23 | CON ---
DATE OF CONSULTATION: HISTORY OF PRESENT ILLNESS: The patient is an unfortunate 83-year-old gentleman with a history of aspiration pneumonia and severe dementia, who presented with increasing dyspnea. The patient is unable to give a coherent history due to severe dementia. The patient has a history of chronic atrial fibrillation. He was in the hospital for over a week and he suddenly went home, became markedly dyspneic. He was noted to be hypoxic. The patient denies having any chest discomfort. He is unable to give coherent history. PAST MEDICAL HISTORY: 1. Diabetes mellitus. 2. Hypertension. 3. Dementia. PAST SURGICAL HISTORY: PEG surgery. SOCIAL HISTORY: He is a former smoker. FAMILY HISTORY: Positive family history of heart disease. ALLERGIES: NO KNOWN DRUG ALLERGIES. PHYSICAL EXAMINATION: GENERAL: Ill-appearing gentleman, who is confused with a blood pressure of 180/ 103. NECK: His neck is full. LUNGS: Have coarse breath sounds bilateral. HEART: Irregular rate and rhythm. Normal S1 and S2. No murmurs. ABDOMEN: Nondistended. PEG tube. EXTREMITIES: No edema. LABORATORY RESULTS: White blood cell count 17.5, hemoglobin 10.5, hematocrit 32.2, platelets were 322. His sodium was 148, potassium 3.7, chloride 111, bicarb 25 , BUN 41, and creatinine 0.92. His troponin is 1.7. BNP was 2263. IMPRESSION: 1. Respiratory failure. 2. Congestive heart failure. 3. Aspiration pneumonia. 4. Diabetes mellitus. 5. Hypertension. This gentleman developed acute onset of either ARDS or congestive heart failure.The patient has severe dementia. We would treat the patient conservatively. We will start the patient on IV Lasix. We will check an echocardiogram to re- evaluate his left ventricular function. The patient's prognosis is very guarded. We will follow this patient with you. Restart the patient on aspirin and Lipitor. Job ID: [id number] [facility]
[2019-05-14] MEDS ORDERED: Enoxaparin Sodium 80 MG/0.8 ML SYRINGE SC SCH (21:00)
[2019-05-14] MEDS: Piperacillin/Tazobactam 4.5 GM in Sodium Chloride 0.9% 100 ML IVPB SCH ×2 (21:06→21:09)
[2019-05-14 23:41] LABS: ALT (SGPT) 25 U/L (8-55); AST (SGOT) 29 U/L (5-34); Albumin 2.8 g/dL (3.4-4.8); Alkaline Phosphatase 58 U/L (40-110); Anion Gap 12 mmol/L (10-20); BUN (Urea Nitrogen) 33 mg/dL (8.4-25.7); Bilirubin, Total 1.3 mg/dL (0.2-1.2); Calc. Creatinine Clearance 64 mL/min (70-130); Calcium 9.1 mg/dL (7.8-10.44); Carbon Dioxide 31 mmol/L (23-31); Chloride 108 mmol/L (98-107); Estimated GFR-MDRD 86; Globulin 3.5 g/dL (2.4-3.5); Glucose 153 mg/dL (83-110); Potassium 3.3 mmol/L (3.5-5.1); Protein, Total 6.3 g/dL (5.8-8.1); Sodium 148 mmol/L (136-145)
[2019-05-14] MEDS ORDERED: Potassium Chloride 20 MEQ TAB PO SCH (23:45)
[2019-05-14 23:46] LABS: Band 16 % (5-11); Hemoglobin 11.7 g/dL (14.0-18.0); Lymphocytes 9 % (21-51); MDiff Complete? YES; Mean Corpuscular Hemoglobin 30.5 pg (27.0-31.0); Mean Corpuscular Volume 95.2 fL (78.0-98.0); Mean Platelet Volume 9.3 fL (7.4-10.4); Monocytes 2 % (0-10); Neutrophil 73 % (42-75); Nucleated RBC 6 % (0); Platelet Count 306 thou/uL (130-400); RBC Distribution Width 15.1 % (11.5-14.5); Red Blood Cell (RBC) Count 3.82 mill/uL (4.70-6.10); White Blood Cell (WBC) Count 14.8 thou/uL (4.8-10.8)
[2019-05-14] MEDS: Metoprolol Tartrate 25 MG TAB PO SCH (23:55)
[2019-05-14] MEDS: Atorvastatin Calcium 20 MG TAB PO SCH (23:55)
[2019-05-15] MEDS ORDERED: Enoxaparin Sodium 80 MG/0.8 ML SYRINGE SC SCH (00:15)
[2019-05-15] MEDS: Piperacillin/Tazobactam 4.5 GM in Sodium Chloride 0.9% 100 ML IVPB SCH ×3 (00:16→08:43)
[2019-05-15] MEDS: Furosemide 40 MG/4 ML VIAL SLOW IVP SCH ×2 (06:13→13:35)
--- NOTE | 2019-05-15 06:30 | PDOC.FM ---
- Subjective Subjective: pt resting comfortably, not in distress on ventimask. no events overnight - Objective Vital Signs & Weight: Vital Signs (12 hours) Temp Pulse Resp BP Pulse Ox 05/15/19 04:45 98.2 F 80 16 115/77 92 L 05/15/19 00:01 97.5 F L 98 16 142/100 H 92 L 05/14/19 20:05 97.7 F 98 16 130/96 H 94 L 05/14/19 20:00 94 L Weight Weight 69.581 kg Result Diagrams: 05/14/19 23:08 05/14/19 23:08 Phys Exam - Physical Examination Constitutional: NAD HEENT: moist MMs Neck: supple ronchi Cardiovascular: no significant murmur, irregular Gastrointestinal: soft Musculoskeletal: pulses present Neurological: moves all 4 limbs Psychiatric: normal affect Deviation from normal: AOx0 Skin: no rash Dx/Plan (1) CHF exacerbation Code(s): I50.9 - HEART FAILURE, UNSPECIFIED Status: Acute (2) NSTEMI (non-ST elevated myocardial infarction) Code(s): I21.4 - NON-ST ELEVATION (NSTEMI) MYOCARDIAL INFARCTION Status: Acute (3) COPD (chronic obstructive pulmonary disease) Status: Chronic (4) Chronic a-fib Code(s): I48.2 - CHRONIC ATRIAL FIBRILLATION * DO NOT USE * Status: Chronic (5) HTN (hypertension) Code(s): I10 - ESSENTIAL (PRIMARY) HYPERTENSION Status: Chronic - Plan Plan: Acute hypoxic respiratory failure - likely related to acute CHF exacerbation - BNP elevated in 2200s, echo pending - lasix, monitor NSTEMI - likely 2/2 CHF exac - therapeutic lovenox Sepsis 2/2 pna- r/o - afebrile, likely a leukomoid reaction, and lactic acidosis 2/2 poor perfusion - DC abx COPD - slight wheezes on exam - prn duonebs DM2 - will restart home insulin regimen - mild SSI - accuchecks ACHS hypokalemia - monitor and replace as needed Dispo: Tele inpatient, anticipate hospital stay >48 hours. Code status: DNAR dispo: overall poor prognosis, palliative and case mgmt on board
[2019-05-15] MEDS: HumaLOG 300 UNITS/3 ML VIAL SC PRN ×3 (07:23→16:56)
[2019-05-15] MEDS: Enoxaparin Sodium 80 MG/0.8 ML SYRINGE SC SCH ×2 (08:43→21:49)
[2019-05-15] MEDS: Metoprolol Tartrate 25 MG TAB PO SCH ×2 (08:45→21:49)
[2019-05-15] MEDS: Aspirin 81 mg Enteric Coated Tablet PO SCH (08:45)
--- NOTE | 2019-05-15 11:19 | PRG ---
DATE OF SERVICE: 05/15/2019 I have examined the patient and discussed the case with Dr. Cooper. I agree with his assessment and plan. Job ID: [id number]
[2019-05-15] MEDS: Acetaminophen 325 MG TAB PO PRN (15:09)
[2019-05-15] MEDS ORDERED: diphenhydrAMINE 25 MG CAP PER TUBE PRN (15:15)
[2019-05-15] MEDS: Atorvastatin Calcium 20 MG TAB PO SCH (21:49)
[2019-05-15] MEDS: Amoxicillin/Potassium Clav 875 MG TAB PER TUBE SCH (21:49)
[2019-05-16 05:41] LABS: Anion Gap 13 mmol/L (10-20); BUN (Urea Nitrogen) 37 mg/dL (8.4-25.7); Calc. Creatinine Clearance 56 mL/min (70-130); Calcium 8.9 mg/dL (7.8-10.44); Carbon Dioxide 32 mmol/L (23-31); Chloride 108 mmol/L (98-107); Estimated GFR-MDRD 72; Glucose 248 mg/dL (83-110); Potassium 3.2 mmol/L (3.5-5.1); Sodium 150 mmol/L (136-145)
--- NOTE | 2019-05-16 06:39 | PDOC.FM ---
- Subjective Subjective: pt resting comfortably in bed, no distress. hemoptysis present - Objective Vital Signs & Weight: Vital Signs (12 hours) Temp Pulse Resp BP Pulse Ox 05/16/19 04:00 98.1 F 96 16 95/70 92 L 05/16/19 00:00 97.6 F 88 16 112/75 96 05/15/19 20:00 98.3 F 94 16 119/77 93 L Weight Admit Weight 69.4 kg Weight 69.581 kg I&O: 05/14/19 05/15/19 05/16/19 06:59 06:59 06:59 Intake Total 2573 Output Total 875 Balance 1698 Result Diagrams: 05/14/19 23:08 05/16/19 05:06 Phys Exam - Physical Examination Constitutional: NAD HEENT: moist MMs Neck: supple Respiratory: clear to auscultation bilateral Cardiovascular: no significant murmur, irregular Gastrointestinal: soft Musculoskeletal: no edema, pulses present Neurological: non-focal Psychiatric: normal affect Skin: no rash Dx/Plan (1) CHF exacerbation Code(s): I50.9 - HEART FAILURE, UNSPECIFIED Status: Acute (2) NSTEMI (non-ST elevated myocardial infarction) Code(s): I21.4 - NON-ST ELEVATION (NSTEMI) MYOCARDIAL INFARCTION Status: Acute (3) COPD (chronic obstructive pulmonary disease) Status: Chronic (4) Chronic a-fib Code(s): I48.2 - CHRONIC ATRIAL FIBRILLATION * DO NOT USE * Status: Chronic (5) HTN (hypertension) Code(s): I10 - ESSENTIAL (PRIMARY) HYPERTENSION Status: Chronic - Plan Plan: Acute hypoxic respiratory failure - likely related to acute CHF exacerbation - BNP elevated in 2200s, echo reveals EF of 20-25% - lasix, monitor Hypernatremia - likely related to 3rd spacing and lasix use - additional free water in tube feeds - consider albumin NSTEMI - likely 2/2 CHF exac - therapeutic lovenox Sepsis 2/2 pna- r/o - afebrile, likely a leukomoid reaction, and lactic acidosis 2/2 poor perfusion - DC broad spectrum abx COPD - slight wheezes on exam - prn duonebs DM2 - will restart home insulin regimen - mild SSI - accuchecks ACHS hypokalemia - monitor and replace as needed Dispo: Tele inpatient, anticipate hospital stay >48 hours. Code status: DNAR dispo: overall poor prognosis, palliative and case mgmt on board
[2019-05-16] MEDS ORDERED: Potassium Chloride 40 MEQ in Sodium Chloride 0.9% 250 ML 250 ML IVPB SCH (06:45)
[2019-05-16] MEDS: HumaLOG 300 UNITS/3 ML VIAL SC PRN ×2 (07:23→16:06)
[2019-05-16] MEDS: Aspirin 81 mg Enteric Coated Tablet PO SCH (08:57)
[2019-05-16] MEDS: Amoxicillin/Potassium Clav 875 MG TAB PER TUBE SCH ×2 (08:57→20:10)
[2019-05-16] MEDS: Metoprolol Tartrate 25 MG TAB PO SCH ×2 (08:58→20:10)
[2019-05-16] MEDS: Enoxaparin Sodium 80 MG/0.8 ML SYRINGE SC SCH ×2 (08:58→21:20)
[2019-05-16] MEDS: Spironolactone 25 MG TAB PO SCH (08:58)
[2019-05-16] MEDS ORDERED: Furosemide 20 MG TAB PER TUBE SCH (09:00)
[2019-05-16] MEDS: BIOTENE MOUTH SPRAY 44.3 ML PO PRN (10:21)
--- NOTE | 2019-05-16 10:54 | PRG ---
DATE OF SERVICE: 05/16/2019 I have examined the patient. I have discussed the case with Dr. Ruben Cooper and agree with his assessment and plan. Job ID: [id number]
[2019-05-16 12:01] LABS: Anion Gap 16 mmol/L (10-20); BUN (Urea Nitrogen) 34 mg/dL (8.4-25.7); Calc. Creatinine Clearance 65 mL/min (70-130); Calcium 8.8 mg/dL (7.8-10.44); Carbon Dioxide 26 mmol/L (23-31); Chloride 110 mmol/L (98-107); Estimated GFR-MDRD 87; Glucose 165 mg/dL (83-110); Potassium 3.2 mmol/L (3.5-5.1); Sodium 149 mmol/L (136-145)
[2019-05-16] MEDS: Lisinopril 5 MG TAB PO SCH (20:10)
[2019-05-16] MEDS: Atorvastatin Calcium 20 MG TAB PO SCH (20:10)
--- NOTE | 2019-05-17 06:50 | PDOC.FM ---
- Subjective Subjective: pt resting comfortably in bed, daughter at bedside reports increasing delusions. decreased O2 requirement - Objective Vital Signs & Weight: Vital Signs (12 hours) Temp Pulse Resp BP Pulse Ox 05/17/19 03:57 97.3 F L 86 18 134/97 H 94 L 05/17/19 00:00 97.7 F 81 18 153/96 H 96 05/16/19 20:31 97.5 F L 60 18 142/88 H 95 05/16/19 20:10 91 05/16/19 20:00 95 Weight Admit Weight 69.4 kg Weight 67.903 kg I&O: 05/15/19 05/16/19 05/17/19 06:59 06:59 06:59 Intake Total 2603 990 Output Total 875 1025 Balance 1728 -35 Result Diagrams: 05/17/19 06:54 05/17/19 06:54 Phys Exam - Physical Examination Constitutional: NAD HEENT: moist MMs Neck: supple Respiratory: clear to auscultation bilateral Cardiovascular: no significant murmur Musculoskeletal: pulses present Psychiatric: normal affect Skin: no rash Dx/Plan (1) CHF exacerbation Code(s): I50.9 - HEART FAILURE, UNSPECIFIED Status: Acute (2) NSTEMI (non-ST elevated myocardial infarction) Code(s): I21.4 - NON-ST ELEVATION (NSTEMI) MYOCARDIAL INFARCTION Status: Acute (3) COPD (chronic obstructive pulmonary disease) Status: Chronic (4) Chronic a-fib Code(s): I48.2 - CHRONIC ATRIAL FIBRILLATION * DO NOT USE * Status: Chronic (5) HTN (hypertension) Code(s): I10 - ESSENTIAL (PRIMARY) HYPERTENSION Status: Chronic - Plan Plan: Acute hypoxic respiratory failure - likely related to acute CHF exacerbation - BNP elevated in 2200s, echo reveals EF of 20-25% - lasix, monitor Hypernatremia - likely related to 3rd spacing and lasix use - additional free water in tube feeds - consider albumin NSTEMI - likely 2/2 CHF exac - therapeutic lovenox Sepsis 2/2 pna- r/o - afebrile, likely a leukomoid reaction, and lactic acidosis 2/2 poor perfusion - DC broad spectrum abx COPD - slight wheezes on exam - prn duonebs DM2 - will restart home insulin regimen - mild SSI - accuchecks ACHS hypokalemia - monitor and replace as needed Dispo: Tele inpatient, anticipate hospital stay >48 hours. Code status: DNAR dispo: overall poor prognosis, palliative and case mgmt on board Addendum - Attending - Attending Attestation Date/Time: 05/17/19 7383 I personally evaluated the patient and discussed the management with the team. I agree with the History, Examination, Assessment and Plan documented above with any addition or exceptions noted below.
[2019-05-17] MEDS: HumaLOG 300 UNITS/3 ML VIAL SC PRN ×4 (07:04→21:54)
[2019-05-17 07:25] LABS: Anion Gap 13 mmol/L (10-20); BUN (Urea Nitrogen) 33 mg/dL (8.4-25.7); Calc. Creatinine Clearance 59 mL/min (70-130); Calcium 9.2 mg/dL (7.8-10.44); Carbon Dioxide 31 mmol/L (23-31); Chloride 110 mmol/L (98-107); Estimated GFR-MDRD 79; Glucose 271 mg/dL (83-110); Sodium 150 mmol/L (136-145)
[2019-05-17 08:25] LABS: Band 3 % (5-11); Hemoglobin 12.4 g/dL (14.0-18.0); Lymphocytes 9 % (21-51); MDiff Complete? YES; Mean Corpuscular HGB CONC 32.6 g/dL (32.0-36.0); Mean Corpuscular Hemoglobin 31.5 pg (27.0-31.0); Mean Corpuscular Volume 96.8 fL (78.0-98.0); Monocytes 3 % (0-10); Myelocyte 2 % (0-0); Neutrophil 82 % (42-75); Platelet Count 372 thou/uL (130-400); Platelet Morphology Comment Appears Adequate; Polychromasia SLIGHT = 2-3 cells (100X) (0-2/hpf); RBC Distribution Width 15.8 % (11.5-14.5); Reactive Lymphocytes 1 % (0-10); Red Blood Cell (RBC) Count 3.94 mill/uL (4.70-6.10); White Blood Cell (WBC) Count 13.5 thou/uL (4.8-10.8)
[2019-05-17] MEDS ORDERED: Dextrose 5% in Water 1,000 ML IV SCH (08:30)
[2019-05-17] MEDS: Enoxaparin Sodium 80 MG/0.8 ML SYRINGE SC SCH ×2 (09:00→21:42)
[2019-05-17] MEDS: Aspirin 81 mg Enteric Coated Tablet PO SCH (09:01)
[2019-05-17] MEDS: Metoprolol Tartrate 25 MG TAB PO SCH (09:01)
[2019-05-17] MEDS: Amoxicillin/Potassium Clav 875 MG TAB PER TUBE SCH ×2 (09:01→21:41)
[2019-05-17] MEDS: Lisinopril 5 MG TAB PO SCH ×2 (09:01→21:41)
[2019-05-17] MEDS: Spironolactone 25 MG TAB PO SCH (09:02)
[2019-05-17] MEDS: Furosemide 40 MG TAB PER TUBE SCH (09:02)
[2019-05-17] MEDS: BIOTENE MOUTH SPRAY 44.3 ML PO PRN ×2 (09:04→16:13)
[2019-05-17] MEDS: Carvedilol 6.25 MG TAB PO SCH (16:12)
[2019-05-17] MEDS: Acetaminophen 325 MG TAB PO PRN (16:12)
[2019-05-17 16:29] LABS: Anion Gap 13 mmol/L (10-20); BUN (Urea Nitrogen) 28 mg/dL (8.4-25.7); Calc. Creatinine Clearance 60 mL/min (70-130); Calcium 8.6 mg/dL (7.8-10.44); Carbon Dioxide 29 mmol/L (23-31); Chloride 108 mmol/L (98-107); Estimated GFR-MDRD 80; Glucose 285 mg/dL (83-110); Potassium 3.3 mmol/L (3.5-5.1); Sodium 147 mmol/L (136-145)
[2019-05-17] MEDS ORDERED: Potassium Chloride 40 MEQ in Premix Bag 1 BAG IVPB SCH (17:45)
[2019-05-17] MEDS ORDERED: Potassium Chloride 40 MEQ in Sodium Chloride 0.9% 250 ML 250 ML IVPB SCH (18:00)
[2019-05-17] MEDS: Atorvastatin Calcium 20 MG TAB PO SCH (21:41)
[2019-05-18] MEDS: Acetaminophen 650 MG/20.3 ML UDCUP PO PRN ×2 (01:25→09:41)
[2019-05-18 05:07] LABS: Anion Gap 14 mmol/L (10-20); BUN (Urea Nitrogen) 31 mg/dL (8.4-25.7); Calc. Creatinine Clearance 64 mL/min (70-130); Calcium 8.8 mg/dL (7.8-10.44); Carbon Dioxide 27 mmol/L (23-31); Chloride 111 mmol/L (98-107); Estimated GFR-MDRD 85; Glucose 258 mg/dL (83-110); Potassium 3.8 mmol/L (3.5-5.1); Sodium 148 mmol/L (136-145)
[2019-05-18 05:37] LABS: Band 7 % (5-11); Eosinophils 1 % (0-10); Hemoglobin 11.5 g/dL (14.0-18.0); Lymphocytes 11 % (21-51); MDiff Complete? YES; Mean Corpuscular HGB CONC 32.3 g/dL (32.0-36.0); Mean Corpuscular Hemoglobin 31.1 pg (27.0-31.0); Mean Corpuscular Volume 96.3 fL (78.0-98.0); Mean Platelet Volume 9.4 fL (7.4-10.4); Monocytes 1 % (0-10); Myelocyte 1 % (0-0); Neutrophil 79 % (42-75); Nucleated RBC 1 % (0); Platelet Count 337 thou/uL (130-400); RBC Distribution Width 16.2 % (11.5-14.5); Red Blood Cell (RBC) Count 3.71 mill/uL (4.70-6.10); White Blood Cell (WBC) Count 16.4 thou/uL (4.8-10.8)
--- NOTE | 2019-05-18 06:50 | PDOC.FM ---
- Subjective Subjective: pt resting in bed, reports of desats overnight, no pain or dyspnea today - Objective Vital Signs & Weight: Vital Signs (12 hours) Temp Pulse Resp BP Pulse Ox 05/18/19 03:15 96.4 F L 79 18 110/58 L 92 L 05/17/19 21:41 75 05/17/19 20:00 97.5 F L 75 20 97/68 90 L Weight Admit Weight 69.4 kg Weight 73.119 kg I&O: 05/16/19 05/17/19 05/18/19 06:59 06:59 06:59 Intake Total 2608 1111 2590 Output Total 875 1150 955 Balance 5851 401 8247 Result Diagrams: 05/18/19 04:02 05/18/19 04:02 Phys Exam - Physical Examination Constitutional: NAD HEENT: moist MMs Neck: no JVD Respiratory: clear to auscultation bilateral Cardiovascular: no significant murmur Gastrointestinal: no distention Musculoskeletal: no edema Neurological: moves all 4 limbs Skin: no rash Dx/Plan (1) CHF exacerbation Code(s): I50.9 - HEART FAILURE, UNSPECIFIED Status: Acute (2) NSTEMI (non-ST elevated myocardial infarction) Code(s): I21.4 - NON-ST ELEVATION (NSTEMI) MYOCARDIAL INFARCTION Status: Acute (3) COPD (chronic obstructive pulmonary disease) Status: Chronic (4) Chronic a-fib Code(s): I48.2 - CHRONIC ATRIAL FIBRILLATION * DO NOT USE * Status: Chronic (5) HTN (hypertension) Code(s): I10 - ESSENTIAL (PRIMARY) HYPERTENSION Status: Chronic - Plan Plan: Acute hypoxic respiratory failure - likely related to acute CHF exacerbation - BNP elevated in 2200s, echo reveals EF of 20-25% - lasix, monitor Hypernatremia - likely related to 3rd spacing and lasix use - additional free water in tube feeds NSTEMI - likely 2/2 CHF exac - therapeutic lovenox Sepsis 2/2 pna- r/o - afebrile, likely a leukomoid reaction, and lactic acidosis 2/2 poor perfusion - DC broad spectrum abx- augmentin COPD - slight wheezes on exam - prn duonebs DM2 - will restart home insulin regimen - mild SSI - accuchecks ACHS hypokalemia - monitor and replace as needed Dispo: Tele inpatient Code status: DNAR dispo: overall poor prognosis, palliative and case mgmt on board Addendum - Attending - Attending Attestation Date/Time: 05/18/19 1200 I personally evaluated the patient and discussed the management with Dr. Cooper. I agree with the History, Examination, Assessment and Plan documented above with any addition or exceptions noted below. Await cards recs. I spent significant time today discussing options including hospice and palliative with his daughter, Sabine. She is unsure about what she wants for her father and feels that this deterioration is very sudden.
[2019-05-18] MEDS: Lisinopril 5 MG TAB PO SCH ×2 (09:41→20:09)
[2019-05-18] MEDS: Enoxaparin Sodium 80 MG/0.8 ML SYRINGE SC SCH ×2 (09:41→20:09)
[2019-05-18] MEDS: Carvedilol 6.25 MG TAB PO SCH ×2 (09:42→16:11)
[2019-05-18] MEDS: Amoxicillin/Potassium Clav 875 MG TAB PER TUBE SCH ×2 (09:42→20:09)
[2019-05-18] MEDS: Furosemide 40 MG TAB PER TUBE SCH (09:42)
[2019-05-18] MEDS: Aspirin 81 mg Enteric Coated Tablet PO SCH (09:42)
[2019-05-18] MEDS: Spironolactone 25 MG TAB PO SCH (09:42)
[2019-05-18] MEDS: BIOTENE MOUTH SPRAY 44.3 ML PO PRN ×2 (09:54→16:11)
[2019-05-18] MEDS: HumaLOG 300 UNITS/3 ML VIAL SC PRN ×4 (10:03→21:50)
--- NOTE | 2019-05-18 10:19 | RAD ---
PORTABLE CHEST 1 VIEW: Date: 05/18/2019 Time: 0959 hours HISTORY: CHF. FINDINGS/IMPRESSION: Comparison made with exam of 05/14/2019. The heart size is normal. The aorta is tortuous. Diffuse bilateral air space and interstitial opaciti es are again seen. No pneumothoraces are identified. Small pleural effusions are present. POS: OFF
--- NOTE | 2019-05-18 13:44 | PQF ---
CLINICAL DOCUMENTATION IMPROVEMENT CLARIFICATION FORM: ICD-10 Updated PLEASE DO AN ADDENDUM TO THE PROGRESS NOTE WITH ANY DOCUMENTATION UPDATES OR ADDITIONS AND CARRY THROUGH TO DC SUMMARY. THANK YOU. DATE: 05/18/19 ATTN: DR. KUMARI Please exercise your independent, professional judgment in responding to the clarification form. Clinical indicators are provided on the bottom of this form for your review Please check appropriate box(s): HEART FAILURE: TYPE [x] Systolic / HFrEF [ ] Diastolic / HFpEF [ ] Combined Systolic / Diastolic [ ] Hypertensive Heart and Kidney disease [ ] Hypertensive Heart Disease [ ] Hypertensive Kidney Disease [ ] Other diagnosis [ ] Unable to determine In addition, please specify: Present on Admission (POA): [ ] Yes [ ] No [ ] Unable to determine For continuity of documentation, please document condition throughout progress notes and discharge summary. Thank You. CLINICAL INDICATORS - SIGNS / SYMPTOMS / LABS / RESULTS AND LOCATION IN EMR H&P 05/14: "CHF EXACERBATION" EF REPORT 05/15: "EJECTION FRACTION VISUALLY ESTIMATED AT 20-25%" PROGRESS NOTE 05/17: "BNP ELEVATED IN 2200s" RISKS: H/O HYPERTENSION (PROGRESS NOTE 05/17) CHRONIC AFIB (PROGRESS NOTE 05/17) TREATMENT: TELEMETRY MONITORING COREG (05/17-PRESENT) LISINOPRIL (05/18-PRESENT) LASIX (05/17-PRESENT) ECHO 05/15 CARDIOLOGY CONSULT 05/14 SAP Assistant Account Manager [employer] Winform Viewer (This form is maintained as a part of the permanent medical record) 2014 [employer]. All Rights Reserved [email or web address] Office: [phone] [facility]
[2019-05-18 15:34] VITALS: BMI 22.4
[2019-05-18] MEDS: Atorvastatin Calcium 20 MG TAB PO SCH (20:09)
[2019-05-19] MEDS: Acetaminophen 650 MG/20.3 ML UDCUP PO PRN ×2 (04:01→17:54)
[2019-05-19] MEDS: HumaLOG 300 UNITS/3 ML VIAL SC PRN ×4 (06:44→21:26)
[2019-05-19] MEDS: Enoxaparin Sodium 80 MG/0.8 ML SYRINGE SC SCH (07:48)
[2019-05-19] MEDS: Amoxicillin/Potassium Clav 875 MG TAB PER TUBE SCH ×2 (07:48→21:21)
[2019-05-19] MEDS: Spironolactone 25 MG TAB PO SCH (07:49)
[2019-05-19] MEDS: Furosemide 40 MG TAB PER TUBE SCH (07:49)
[2019-05-19] MEDS: Aspirin 81 mg Enteric Coated Tablet PO SCH (07:49)
[2019-05-19] MEDS: Carvedilol 6.25 MG TAB PO SCH ×2 (07:49→17:53)
[2019-05-19] MEDS: Lisinopril 5 MG TAB PO SCH ×2 (07:49→21:21)
[2019-05-19] MEDS: BIOTENE MOUTH SPRAY 44.3 ML PO PRN ×2 (07:54→10:13)
--- NOTE | 2019-05-19 08:09 | PDOC.FM ---
- Subjective Subjective: pt resting in bed, no events overnight, no dyspnea - Objective Vital Signs & Weight: Vital Signs (12 hours) Temp Pulse Resp BP BP Pulse Ox 05/19/19 06:58 97.3 F L 75 18 139/73 94 L 05/19/19 03:37 96.4 F L 100 16 107/55 L 93 L 05/18/19 20:09 73 141/67 H Weight Admit Weight 69.4 kg Weight 73.482 kg I&O: 05/18/19 05/19/19 05/20/19 06:59 06:59 06:59 Intake Total 2590 1355 Output Total 955 620 Balance 1635 735 Result Diagrams: 05/18/19 04:02 05/18/19 04:02 Phys Exam - Physical Examination Constitutional: NAD HEENT: moist MMs Respiratory: clear to auscultation bilateral Cardiovascular: no significant murmur Gastrointestinal: non-tender Musculoskeletal: no edema Neurological: moves all 4 limbs Psychiatric: normal affect Skin: no rash Dx/Plan (1) CHF exacerbation Code(s): I50.9 - HEART FAILURE, UNSPECIFIED Status: Acute (2) NSTEMI (non-ST elevated myocardial infarction) Code(s): I21.4 - NON-ST ELEVATION (NSTEMI) MYOCARDIAL INFARCTION Status: Acute (3) COPD (chronic obstructive pulmonary disease) Status: Chronic (4) Chronic a-fib Code(s): I48.2 - CHRONIC ATRIAL FIBRILLATION * DO NOT USE * Status: Chronic (5) HTN (hypertension) Code(s): I10 - ESSENTIAL (PRIMARY) HYPERTENSION Status: Chronic - Plan Plan: Acute hypoxic respiratory failure - likely related to acute CHF exacerbation - BNP elevated in 2200s, echo reveals EF of 20-25% - lasix, monitor Hypernatremia - likely related to 3rd spacing and lasix use - additional free water in tube feeds NSTEMI - likely 2/2 CHF exac - therapeutic lovenox Sepsis 2/2 pna- r/o - afebrile, likely a leukomoid reaction, and lactic acidosis 2/2 poor perfusion - DC broad spectrum abx- augmentin COPD - slight wheezes on exam - prn duonebs DM2 - will restart home insulin regimen - mild SSI - accuchecks ACHS hypokalemia - monitor and replace as needed Dispo: Tele inpatient Code status: DNAR dispo: poor prognosis, daughter is undecided. likely dc today or tomorrow Addendum - Attending - Attending Attestation Date/Time: 05/19/19 3092 I personally evaluated the patient and discussed the management with the team. I agree with the History, Examination, Assessment and Plan documented above with any addition or exceptions noted below.
[2019-05-19] MEDS ORDERED: Furosemide 40 MG/4 ML VIAL SLOW IVP SCH (09:15)
[2019-05-19 11:59] LABS: Hemoglobin 11.5 g/dL (14.0-18.0); Mean Corpuscular HGB CONC 32.8 g/dL (32.0-36.0); Mean Corpuscular Hemoglobin 32.2 pg (27.0-31.0); Mean Corpuscular Volume 98.4 fL (78.0-98.0); Mean Platelet Volume 8.8 fL (7.4-10.4); Platelet Count 315 thou/uL (130-400); RBC Distribution Width 16.2 % (11.5-14.5); Red Blood Cell (RBC) Count 3.57 mill/uL (4.70-6.10); White Blood Cell (WBC) Count 18.6 thou/uL (4.8-10.8)
[2019-05-19 12:12] LABS: #Eosinphils 0.2 thou/uL (0.0-0.7); #Lymphocytes 2.4 thou/uL (1.20-3.40); #Monocytes 0.6 thou/uL (0.11-0.59); #Neutrophils 15.4 thou/uL (1.40-6.50); %Basophils 0.1 % (0.0-1.0); %Eosinophils 1.3 % (0.0-10.0); %Lymphocytes 12.7 % (21.0-51.0); %Monocytes 3.1 % (0.0-10.0); %Neutrophils 82.9 % (42.0-75.0); Band 4 % (5-11); Lymphocytes 13 % (21-51); MDiff Complete? YES; Monocytes 3 % (0-10); Myelocyte 1 % (0-0); Neutrophil 78 % (42-75); RBC Morphology Normal; Reactive Lymphocytes 1 % (0-10)
[2019-05-19 12:16] LABS: Anion Gap 13 mmol/L (10-20); BUN (Urea Nitrogen) 29 mg/dL (8.4-25.7); Calc. Creatinine Clearance 69 mL/min (70-130); Calcium 8.9 mg/dL (7.8-10.44); Carbon Dioxide 30 mmol/L (23-31); Chloride 111 mmol/L (98-107); Estimated GFR-MDRD 85; Glucose 216 mg/dL (83-110); Potassium 3.6 mmol/L (3.5-5.1); Sodium 150 mmol/L (136-145)
[2019-05-19] MEDS: Apixaban 5 MG TAB PO SCH (21:21)
[2019-05-19] MEDS: Atorvastatin Calcium 20 MG TAB PO SCH (21:21)
[2019-05-20] MEDS: HumaLOG 300 UNITS/3 ML VIAL SC PRN ×2 (06:13→12:43)
[2019-05-20] MEDS: Acetaminophen 650 MG/20.3 ML UDCUP PO PRN ×2 (06:13→12:55)
[2019-05-20 06:17] LABS: Anion Gap 10 mmol/L (10-20); BUN (Urea Nitrogen) 29 mg/dL (8.4-25.7); Calc. Creatinine Clearance 64 mL/min (70-130); Calcium 8.7 mg/dL (7.8-10.44); Carbon Dioxide 32 mmol/L (23-31); Chloride 112 mmol/L (98-107); Estimated GFR-MDRD 89; Glucose 257 mg/dL (83-110); Potassium 4.1 mmol/L (3.5-5.1); Sodium 150 mmol/L (136-145)
[2019-05-20 06:33] LABS: Band 2 % (5-11); Eosinophils 1 % (0-10); Hemoglobin 11.6 g/dL (14.0-18.0); Lymphocytes 9 % (21-51); MDiff Complete? YES; Mean Corpuscular HGB CONC 31.3 g/dL (32.0-36.0); Mean Corpuscular Hemoglobin 31.1 pg (27.0-31.0); Mean Corpuscular Volume 99.2 fL (78.0-98.0); Mean Platelet Volume 9.2 fL (7.4-10.4); Monocytes 2 % (0-10); Neutrophil 86 % (42-75); Nucleated RBC 2 % (0); Platelet Count 318 thou/uL (130-400); RBC Distribution Width 17.2 % (11.5-14.5); Red Blood Cell (RBC) Count 3.72 mill/uL (4.70-6.10); White Blood Cell (WBC) Count 21.2 thou/uL (4.8-10.8)
[2019-05-20] MEDS: Spironolactone 25 MG TAB PO SCH (08:28)
[2019-05-20] MEDS: Apixaban 5 MG TAB PO SCH (08:28)
[2019-05-20] MEDS: Carvedilol 6.25 MG TAB PO SCH (08:28)
[2019-05-20] MEDS: Amoxicillin/Potassium Clav 875 MG TAB PER TUBE SCH (08:28)
[2019-05-20] MEDS: Lisinopril 5 MG TAB PO SCH (08:28)
[2019-05-20] MEDS: Furosemide 40 MG TAB PER TUBE SCH (08:28)
--- NOTE | 2019-05-20 08:48 | PDOC.FM ---
- Subjective Subjective: pt resting comfortably in bed, not in distress. daughter reports pt complaining of pain overnight/delusions - Objective Vital Signs & Weight: Vital Signs (12 hours) Temp Pulse Resp BP BP Pulse Ox 05/20/19 08:00 97.6 F 70 20 125/76 93 L 05/20/19 04:00 97.6 F 75 19 136/85 96 05/20/19 00:05 97.6 F 67 18 121/74 94 L 05/19/19 21:21 73 119/74 Weight Admit Weight 69.4 kg Weight 65.572 kg I&O: 05/19/19 05/20/19 05/21/19 06:59 06:59 06:59 Intake Total 1355 1930 Output Total 620 825 Balance 735 1105 Result Diagrams: 05/20/19 05:16 05/20/19 05:16 Phys Exam - Physical Examination Constitutional: NAD HEENT: moist MMs Neck: full ROM transmitted breath sounds Cardiovascular: RRR, no significant murmur Gastrointestinal: non-tender, no distention Musculoskeletal: no edema Neurological: moves all 4 limbs Psychiatric: normal affect Skin: no rash Dx/Plan (1) CHF exacerbation Code(s): I50.9 - HEART FAILURE, UNSPECIFIED Status: Acute (2) NSTEMI (non-ST elevated myocardial infarction) Code(s): I21.4 - NON-ST ELEVATION (NSTEMI) MYOCARDIAL INFARCTION Status: Acute (3) COPD (chronic obstructive pulmonary disease) Status: Chronic (4) Chronic a-fib Code(s): I48.2 - CHRONIC ATRIAL FIBRILLATION * DO NOT USE * Status: Chronic (5) HTN (hypertension) Code(s): I10 - ESSENTIAL (PRIMARY) HYPERTENSION Status: Chronic - Plan Plan: Acute hypoxic respiratory failure - likely related to acute CHF exacerbation - BNP elevated in 2200s, echo reveals EF of 20-25% - lasix, monitor Hypernatremia - likely related to 3rd spacing and lasix use - additional free water in tube feeds NSTEMI - likely 2/2 CHF exac Leukocytosis - afebrile, likely a leukomoid reaction - augmentin COPD - prn duonebs DM2 - will restart home insulin regimen - mild SSI - accuchecks ACHS hypokalemia - monitor and replace as needed Dispo: Tele inpatient Code status: DNAR dispo: poor prognosis, daughter is currently desiring hospice care, dc when available Addendum - Attending - Attending Attestation Date/Time: 05/20/19 1211 I personally evaluated the patient and discussed the management with Dr. Cooper. I agree with the History, Examination, Assessment and Plan documented above with any addition or exceptions noted below. Mr. Robertson's mental status remains unchanged. His exam is again benign and nonfocal. Sabine, his daughter, has selected hospice after much deliberation and , which she has vacillated previously concerning he desires for her father, she seems to feel that hospice is best for him today. He remains afebrile but has developed a progressive leukocytosis of an unclear etiology on history and exam. This can be followed clinically or with labs as deemed appropriate by hospice.
[2019-05-20 11:56] VITALS: BP 122/78; TEMP 97.4
--- NOTE | 2019-05-21 02:56 | PQF ---
NORBERTO ANGEL BRANDON [id number] [facility] [id number] CLINICAL DOCUMENTATION CLARIFICATION FORM: POST DISCHARGE Addendum to original discharge summary date: ____ Late entry note date: __ DATE: 05/21/19 ATTN: Bert Castillo Please exercise your independent, professional judgment in responding to the clarification form. Clinical indicators are provided on the bottom of this form for your review Can you please further clarify if Sepsis is ruled in or ruled out? Sepsis [ ] Ruled in diagnosis [ ] Continue to treat [ ] Resolved [ x] Ruled out diagnosis [ ] Cannot rule out diagnosis [ ] Other diagnosis [ ] Unable to determine In addition, please specify: Present on Admission (POA): [ ] Yes [ ] No [ ] Unable to determine For continuity of documentation, please document condition throughout progress notes and discharge summary. Thank You. CLINICAL INDICATORS - SIGNS / SYMPTOMS / LABS PN 1 pg.3- Sepsis 2/2 Pna- r/o, afebrile likely a leukemoid reaction, and lactic acidosis 2/2 poor perfusion PN 05/20 pg.3- He remains afebrile but has develop a progressive leukocytosis of unclear etiology H and P pg.1- Lactic acid of 3.5 H and P pg.4- sepsis 2/2 pna, elevated lactic acid, wbc count, tachycardic RISK FACTORS CHF exacerbation-PN pg.2 NSTEMI- PN pg.2 Chronic Afib- PN pg.2 Hypertension- PN pg.2 acute hypoxic respiratory failure- PN pg.2 COPD- H and P pg.4 TREATMENTS IV Fluids- MAR IV Antibiotics- MAR Chest X ray 05/18 O2 supplementation (This form is maintained as a part of the permanent medical record) 2014 [employer]. All Rights Reserved [email or web address] [not provided] [email or web address]
== END 2019-05-20 13:10 | disposition hospice, home (50) | DRG 280 ==
LOC: ERS 04:37 → ERHOLD 06:13 → 2SE 16:20 → ERHOLD 16:20 → 2SE 18:36 → 2NO 05-17 22:58 → T4-A 05-19 14:26
PROVIDERS: ADMIT Family Medicine; ATTEND Family Medicine
DX: I11.0 Hypertensive heart disease with heart failure (principal); J96.01 Acute respiratory failure with hypoxia; I21.4 Non-ST elevation (NSTEMI) myocardial infarction; I48.20 Chronic atrial fibrillation, unspecified; E87.0 Hyperosmolality and hypernatremia; E87.2 Acidosis; I50.23 Acute on chronic systolic (congestive) heart failure; Z66 Do not resuscitate; F03.90 Unspecified dementia, unspecified severity, without behavioral disturbance, psychotic disturbance, mood disturbance, and anxiety; E11.40 Type 2 diabetes mellitus with diabetic neuropathy, unspecified; E78.5 Hyperlipidemia, unspecified; E87.6 Hypokalemia; J44.9 Chronic obstructive pulmonary disease, unspecified; Z79.82 Long term (current) use of aspirin; Z79.01 Long term (current) use of anticoagulants; Z79.899 Other long term (current) drug therapy; Z79.4 Long term (current) use of insulin
CPT/HCPCS: 36415; 36416; 71045; 80048; 82553; 83735; 84145; 85025; 93005; 93306; 96372; J1650; J1940; J1956; J2543; J3370; J3480; J3490; J7050; Q0163